=== PATIENT | female | born 1935 | race Hispanic/Latino ===

== ENCOUNTER 2017-07-21 17:50 | Inpatient (IN) | payer MEDICARE, OTHER ==
[2017-07-21] MEDS ORDERED: Metoprolol 1 mg/ml Inj IVP STA ×2 (18:23→19:09)
--- NOTE | 2017-07-21 18:38 | ED PDOC ---
Arrival/HPI - General Time Seen by Provider: 07/21/17 18:09 Historian: Patient - History of Present Illness Narrative History of Present Illness (Text): 07/21/17 18:30 A 82 year old female, whose past medical history includes atrial fibrillation on coumadin, CABG and hypertension, presents to the emergency department complaining chest pain for the past 3 days. Patient notes associated palpitations and shortness of breath. She states her symptoms worsened today causing her to come in for further evaluation. Patient reports her PMD recently started her on Metoprolol Patient denies any fever, chills, nausea, vomiting, abdominal pain, urinary symptoms or any other complaints. PMD: Dr. Valdovinos 07/21/17 20:27 Time/Duration: Other (3 days) Symptom Course: Worsening Quality: Other Context: Home Past Medical History - Provider Review Nursing Documentation Reviewed: Yes - Cardiac Hx Pacemaker: No - Neurological Hx Paralysis: No - HEENT Hx Cataracts: Yes - Hematological/Oncological Hx Blood Transfusions: Yes Hx Blood Transfusion Reaction: No - Musculoskeletal/Rheumatological Hx Musculoskeletal Disorders: Yes - Gastrointestinal Hx Gastrointestinal Disorders: Yes (ABDOMINAL PAIN S/P EGD WITH PERFORATION, ACUTE PANCREATITIS,REPAIR DUODENUM) - Genitourinary/Gynecological Hx Genitourinary Disorders: Yes (KIDNEY DSE,) Hx Reproductive Disorders: No - Psychiatric Hx Emotional Abuse: No Hx Physical Abuse: No Hx Substance Use: No - Surgical History Hx Angioplasty: Yes Hx Cardiac Catheterization: Yes Hx Cholecystectomy: Yes Hx Open Heart Surgery: Yes - Anesthesia Hx Anesthesia Reactions: No Hx Malignant Hyperthermia: No - Suicidal Assessment Feels Threatened In Home Enviroment: No Family/Social History - Physician Review Nursing Documentation Reviewed: Yes Family/Social History: No Known Family HX Smoking Status: Never Smoked Hx Alcohol Use: No Hx Substance Use: No Hx Substance Use Treatment: No Allergies/Home Meds Allergies/Adverse Reactions: Allergies acetaminophen Allergy (Verified 07/21/17 17:56) HEADACHE erythromycin base Allergy (Verified 07/21/17 17:56) RASH Penicillins Allergy (Verified 07/21/17 17:56) SWELLING tetanus toxoid, adsorbed Allergy (Verified 07/21/17 17:56) SWELLING Home Medications: Home Meds Medication Instructions Recorded Confirmed Atorvastatin [Lipitor] 20 mg PO QPM 06/02/12 07/21/17 Escitalopram [Lexapro] 10 mg PO DAILY 06/02/12 07/21/17 Primidone 50 mg PO BID 06/02/12 07/21/17 Warfarin [Coumadin] 3 mg PO DAILY 03/14/15 07/21/17 Cholecalciferol [Vitamin D] 1,000 iu PO DAILY 03/19/15 07/21/17 Omeprazole [Prilosec] 20 mg PO QAM 03/19/15 07/21/17 ALPRAZolam [Xanax] 0.25 mg PO BID 07/21/17 07/21/17 Lisinopril [Zestril] 20 mg PO DAILY 07/21/17 07/21/17 [place]-3/Dha/Epa/Fish Oil [Fish Oil 1,200 mg PO DAILY 07/21/17 07/21/17 EC 1,200 mg Softgel] Potassium Chloride [K-Dur 20 mEq 20 meq PO BID 07/21/17 07/21/17 ER Tab] Review of Systems - Patients Enrolled in Nursing Admin Initiative [X]: A conversation was conducted with the primary medical doctor. - Physician Review All systems were reviewed & negative as marked: Yes - Review of Systems Constitutional: absent: Fevers, Night Sweats Respiratory: SOB Cardiovascular: Chest Pain, Palpitations Gastrointestinal: absent: Abdominal Pain, Nausea, Vomiting Genitourinary Female: absent: Dysuria, Frequency, Hematuria, Urine Output Changes Physical Exam Vital Signs Reviewed: Yes Vital Signs Temp Pulse Resp BP Pulse Ox 07/21/17 19:57 108 H 171/114 H 07/21/17 19:37 96 H 18 96 07/21/17 19:16 116 H 18 141/95 H 95 07/21/17 18:45 120 H 121/101 H 07/21/17 18:35 18 07/21/17 17:50 97.9 F 123 H 20 170/108 H 99 Temperature: Afebrile Blood Pressure: Hypertensive Pulse: Tachycardic Respiratory Rate: Normal Appearance: Positive for: Well-Appearing, Non-Toxic, Comfortable Pain Distress: None Mental Status: Positive for: Alert and Oriented X 3 - Systems Exam Head: Present: Atraumatic, Normocephalic Pupils: Present: PERRL Extroacular Muscles: Present: EOMI Conjunctiva: Present: Normal Mouth: Present: Moist Mucous Membranes Neck: Present: Normal Range of Motion Respiratory/Chest: Present: Decreased Breath Sounds, Rales. No: Respiratory Distress, Accessory Muscle Use Cardiovascular: Present: Normal S1, S2, Irregular Rhythm. No: Murmurs Abdomen: Present: Normal Bowel Sounds. No: Tenderness, Distention, Peritoneal Signs Back: Present: Normal Inspection Upper Extremity: Present: Normal Inspection, NORMAL PULSES. No: Cyanosis, Edema Lower Extremity: Present: Normal Inspection, NORMAL PULSES. No: Edema, CALF TENDERNESS Neurological: Present: GCS=15, CN II-XII Intact, Speech Normal Skin: Present: Warm, Dry, Normal Color. No: Rashes Psychiatric: Present: Alert, Oriented x 3, Normal Insight, Normal Concentration Medical Decision Making ED Course and Treatment: 07/21/17 18:30 Impression: A 82 year old female with chest pain, palpitations and shortness of breath. Plan: -- Chest xray -- Labs -- Aspirin and Metoprolol for afib -- Reassess and disposition Progress Notes: EKG shows atrial fibrillation at 123 BPM with LBBB, with no changes compared to prior on 09/11/12. Interpreted by me. 07/21/17 20:21 HR improving after IV lopressor. Spoke to Dr. Valdovinos who is requesting home lopressor po dose, lasix and full admit - Lab Interpretations Lab Results: 07/21/17 18:50 07/21/17 18:50 Lab Results 07/21/17 18:50: PT 49.2 H, INR 4.38 H*, APTT 41.3 H 07/21/17 18:50: Sodium 140, Potassium 3.9, Chloride 104, Carbon Dioxide 28, Anion Gap 12, BUN 14, Creatinine 1.0, Est GFR ( Amer) > 60, Est GFR (Non- Af Amer) 53, Random Glucose 114 H, Calcium 9.1, Total Bilirubin 0.8, AST 25, ALT 29, Alkaline Phosphatase 110, Total Creatine Kinase 43, Troponin I 0.06, NT- Pro-B Natriuret Pep 8300 H, Total Protein 6.2, Albumin 3.7, Globulin 2.5, Albumin/Globulin Ratio 1.5 07/21/17 18:50: WBC 9.9 D, RBC 4.27, Hgb 11.9 L, Hct 36.4, MCV 85.2, MCH 27.9, MCHC 32.7, RDW 14.8 H, Plt Count 240, MPV 10.0, Gran % 79.8 H, Lymph % (Auto) 13.3 L, Bledsoe % (Auto) 5.8, Eos % (Auto) 0.6 L, Baso % (Auto) 0.5, Gran # 7.88 H , Lymph # 1.3, Bledsoe # 0.6, Eos # 0.1, Baso # 0.05 I have reviewed the lab results: Yes - RAD Interpretation Radiology Orders: 07/21/17 18:22 CHEST PORTABLE [RAD] Stat - Medication Orders Current Medication Orders: Discontinued Medications Aspirin (Aspirin Chewable) 324 mg PO STAT STA Stop: 07/21/17 18:31 Last Admin: 07/21/17 18:44 Dose: 324 mg Furosemide (Lasix) 40 mg IVP STAT STA Stop: 07/21/17 19:54 Metoprolol Tartrate (Lopressor) 5 mg IVP STAT STA Stop: 07/21/17 18:24 Last Admin: 07/21/17 18:45 Dose: 5 mg IVP Administration Document 07/21/17 18:45 [facility] (Rec: 07/21/17 18:45 [id number] Charges for Administration # of IVP Administrations 1 MAR Pulse and Blood Pressure Document 07/21/17 18:45 [facility] (Rec: 07/21/17 18:45 [id number]) Pulse Pulse Rate (60-90) 120 Blood Pressure Blood Pressure (100/60-150/90) 121/101 Metoprolol Tartrate (Lopressor) 5 mg IVP STAT STA Stop: 07/21/17 19:10 Last Admin: 07/21/17 19:57 Dose: 5 mg IVP Administration Document 07/21/17 19:57 SS (Rec: 07/21/17 19:58 SS [id number]) Charges for Administration # of IVP Administrations 1 MAR Pulse and Blood Pressure Document 07/21/17 19:57 SS (Rec: 07/21/17 19:58 SS [id number]) Pulse Pulse Rate (60-90) 108 Blood Pressure Blood Pressure (100/60-150/90) 171/114 Metoprolol Tartrate (Lopressor) 12.5 mg PO STAT STA Stop: 07/21/17 20:21 - Scribe Statement The provider has reviewed the documentation as recorded by the Xavier Fall Provider Scribe Attestation: All medical record entries made by the Scribe were at my direction and personally dictated by me. I have reviewed the chart and agree that the record accurately reflects my personal performance of the history, physical exam, medical decision making, and the department course for this patient. I have also personally directed, reviewed, and agree with the discharge instructions and disposition. Disposition/Present on Arrival - Present on Arrival Any Indicators Present on Arrival: No History of DVT/PE: No History of Uncontrolled Diabetes: No Urinary Catheter: No History Surgical Site Infection Following: None - Disposition Have Diagnosis and Disposition been Completed?: Yes Diagnosis: Atrial fibrillation with RVR Disposition: HOSPITALIZED Disposition Time: 19:57 Patient Plan: Admission Condition: FAIR
[2017-07-21 19:06] LABS: BASO # 0.05 K/mm3 (0.0-2.0); BASO % 0.5 % (0.0-3.0); EOS # 0.1 (0.0-0.7); EOS % 0.6 % (1.5-5.0); GRAN # 7.88 (1.4-6.5); GRAN % 79.8 % (50.0-68.0); HEMATOCRIT 36.4 % (36.0-48.0); LYMPH # 1.3 (1.2-3.4); LYMPH % 13.3 % (22.0-35.0); MEAN CELL VOLUME 85.2 fl (80.0-105.0); MEAN CORPUSCULAR HEMOGLOBIN 27.9 pg (25.0-35.0); MEAN CORPUSCULAR HGB CONC 32.7 g/dl (31.0-37.0); MONO # 0.6 (0.1-0.6); MONO % 5.8 % (1.0-6.0); RED CELL DISTRIBUTION WIDTH 14.8 % (11.5-14.5); WHITE BLOOD COUNT 9.9 10^3/ul (4.5-11.0)
[2017-07-21 19:18] LABS: ALB/GLOB RATIO 1.5 (1.1-1.8); ALKALINE PHOSPHATASE 110 U/L (38-126); ALT/SGPT 29 U/L (7-56); AST/SGOT 25 U/L (14-36); BILIRUBIN,TOTAL 0.8 mg/dL (0.2-1.3); BLOOD UREA NITROGEN 14 mg/dL (7-21); CALCIUM 9.1 mg/dL (8.4-10.5); CARBON DIOXIDE 28 mmol/L (21-33); CHLORIDE 104 mmol/L (98-107); GFR AFRICAN-AMERICAN > 60; GLUCOSE,RANDOM 114 mg/dL (70-110); POTASSIUM 3.9 mmol/L (3.6-5.0); SODIUM 140 mmol/L (132-148); TOTAL PROTEIN 6.2 g/dL (5.8-8.3)
[2017-07-21 19:21] LABS: INR 4.38 (0.93-1.08); PARTIAL THROMBOPLASTIN TIME 41.3 Seconds (25.1-36.5)
[2017-07-21 19:30] LABS: TROPONIN I 0.06 ng/mL
--- NOTE | 2017-07-21 19:40 | CARD ---
APPROVED REPORT EKG Measurement Heart [id number] <Conclusion> Atrial fibrillation with rapid ventricular response Left bundle branch block Abnormal ECG
[2017-07-21 23:25] VITALS: BMI 32.2
[2017-07-22] MEDS ORDERED: diltiaZEM IVPB 100mg in NS 100 ML IV PRN (08:17)
[2017-07-22] MEDS: Albuterol-Ipratrop 3 mg / 0.5 (3 ml) UD IH PRN ×2 (08:26→19:28)
--- NOTE | 2017-07-22 08:47 | RAD ---
HISTORY: chest pain COMPARISON: 09/19/2012 FINDINGS: LUNGS: No active pulmonary disease. PLEURA: No significant pleural effusion identified, no pneumothorax apparent. CARDIOVASCULAR: Mild cardiomegaly. Mild vascular congestion. OSSEOUS STRUCTURES: Sternal wires VISUALIZED UPPER ABDOMEN: Normal. OTHER FINDINGS: None. IMPRESSION: No active disease.
[2017-07-22 09:44] LABS: MEAN CORPUSCULAR HEMOGLOBIN 27.4 pg (25.0-35.0); MEAN CORPUSCULAR HGB CONC 31.9 g/dl (31.0-37.0); MEAN PLATELET VOLUME 9.8 fl (7.0-11.0); WHITE BLOOD COUNT 9.6 10^3/ul (4.5-11.0)
[2017-07-22 09:52] LABS: INR 3.86 (0.93-1.08)
[2017-07-22 10:30] LABS: ALB/GLOB RATIO 1.4 (1.1-1.8); ALKALINE PHOSPHATASE 108 U/L (38-126); ALT/SGPT 29 U/L (7-56); AST/SGOT 24 U/L (14-36); BILIRUBIN,TOTAL 1.3 mg/dL (0.2-1.3); BLOOD UREA NITROGEN 17 mg/dL (7-21); CARBON DIOXIDE 30 mmol/L (21-33); CHLORIDE 100 mmol/L (95-110); GFR AFRICAN-AMERICAN > 60; GLUCOSE,RANDOM 157 mg/dL (70-110); MAGNESIUM 1.5 mg/dL (1.7-2.2); PHOSPHOROUS 2.8 mg/dL (2.5-4.5); POTASSIUM 3.5 mmol/L (3.6-5.0); SODIUM 138 mmol/L (132-148); TOTAL PROTEIN 6.6 g/dL (5.8-8.3)
[2017-07-22 10:52] LABS: TROPONIN I 0.05 ng/mL
--- NOTE | 2017-07-22 11:18 | CON ---
DATE: 07/22/2017 HISTORY OF PRESENT ILLNESS: I was called by the patient who was short of breath and asked to see her. The patient I have known for many years. She presents with shortness of breath. She is found to be in atrial fibrillation with a heart rate in the emergency room of 140. She was given beta blockers as well as digoxin. Currently, the patient is on telemetry floor with dyspnea. PAST MEDICAL HISTORY: The patient's past medical history is notable for hypertension, hypercholesterolemia, and COPD. She is status post coronary artery bypass surgery, last evaluated in 2014. She denies diabetes mellitus. SOCIAL HISTORY: The patient does not smoke. REVIEW OF SYSTEMS: A 14-point review of systems is notable for marked dyspnea, which is over the past several days. No angina noted. PHYSICAL EXAMINATION: VITAL SIGNS: Blood pressure is 153/94, heart rate is 114, atrial fibrillation. NECK: Negative JVD. LUNGS: Minimal expiratory wheezing. Decreased breath sounds. HEART: Reveal S1, S2. EXTREMITIES: Without edema. EKG shows atrial fibrillation with IVCD. LABORATORY DATA: ProBNP is 8300. The troponin is 0.06. The glucose is 114. The hemoglobin is 11.9 with an INR of 4.38. IMPRESSION: 1. New onset atrial fibrillation. 2. Acute systolic congestive heart failure. 3. Bronchospasm. 4. Hypertension. 5. Hypercholesterolemia. 6. Coronary artery disease. 7. History of coronary artery bypass surgery. PLAN: Given these findings, we will start the patient on IV Cardizem. Respiratory treatment with bronchodilators have been ordered. An echocardiogram has been ordered. Akbar Judd MD
--- NOTE | 2017-07-22 16:55 | CARD ---
APPROVED REPORT EXAM: Two-dimensional and M-mode echocardiogram with Doppler and color Doppler. INDICATION Dyspnea 2D DIMENSIONS Left Atrium (2D)5.0 (1.6-4.0cm)IVSd1.6 (0.7-1.1cm) LVDd4.0 (3.9-5.9cm)PWd1.4 (0.7-1.1cm) LVDs3.2 (2.5-4.0cm)FS (%) 19.3 % LVEF (%)40.1 (>50%) M-Mode DIMENSIONS Aortic Root2.50 (2.2-3.7cm)Aortic Cusp Exc.1.20 (1.5-2.0cm) Aortic Valve AoV Peak Doynjrji708.0cm/Nick Peak GR.16mmHg Mitral Valve E/A ratio0.0 TDI E/Lateral E'0.0E/Medial E'0.0 Tricuspid Valve TR Peak [id number] [id number] Peak Gr.30mmHg [id number] LEFT VENTRICLE The left ventricle is normal size. There is moderate concentric left ventricular hypertrophy. Left ventricle systolic function is moderately to severely impaired. sever Septal hypokinesis RIGHT VENTRICLE The right ventricle is normal size. There is normal right ventricular wall thickness. RV Systolic function is moderately reduced. ATRIA The left atrium is moderately dilated. The right atrium size is normal. AORTIC VALVE The aortic valve is moderately sclerotic. There is trace aortic regurgitation. MITRAL VALVE The mitral valve is calcified and displays decreased opening. Mitral regurgitation is mild. TRICUSPID VALVE There is mild tricuspid regurgitation. There is mild pulmonary hypertension. GREAT VESSELS The aortic root is normal in size. The IVC is normal in size and collapses >50% with inspiration. PERICARDIAL EFFUSION There is no pericardial effusion. <Conclusion> The left ventricle is normal size. There is moderate concentric left ventricular hypertrophy. Left ventricle systolic function is moderately to severely impaired. sever Septal hypokinesis RV Systolic function is moderately reduced. The mitral valve is calcified and displays decreased opening. Mitral regurgitation is mild. There is mild tricuspid regurgitation. There is mild pulmonary hypertension.
--- NOTE | 2017-07-23 03:20 | HP ---
DATE: 07/22/2017 HISTORY OF PRESENT ILLNESS: This 82-year-old female is admitted to [facility] with decompensated systolic congestive heart failure in the setting of rapid atrial fibrillation. The patient was treated with IV Lopressor and IV Lasix, Duo nebulizers, nasal O2, and at present is denying chest pain, hemoptysis, nausea, or vomiting. PAST MEDICAL HISTORY: The patient has a significant past medical history of atherosclerotic heart disease, status post CABG, status post coronary artery stents with chronic atrial fibrillation treated with oral Coumadin and outpatient Lopressor. Also with history of chronic depression, anxiety neurosis, hyperlipidemia, degenerative arthritis, spinal arthritis, essential tremor, and obesity. MEDICATIONS: The patient's outpatient medications included Coumadin, primidone, Prilosec, K-Dur, Zestril, Lexapro, vitamin D, Lipitor, and Xanax. ALLERGIES: SHE HAS ALLERGIES TO ACETAMINOPHEN, PENICILLIN, AND ERYTHROMYCIN. FAMILY HISTORY: Noncontributory. SOCIAL HISTORY: She is a current nondrinker, nonsmoker, non IV drug abuser. She is a retired homemaker. REVIEW OF SYSTEMS: CONSTITUTIONAL: No fever or chills. HEAD: No knowledge of stroke. EYES: Macular degeneration. EARS: No hearing loss. THROAT: No swallowing difficulty. NECK: No stiffness. CARDIAC: History of atherosclerotic heart disease, CABG, stents, chronic atrial fibrillation, chronic hypertension. PULMONARY: No hemoptysis. No respiratory insufficiency. GASTROINTESTINAL: GERD. GENITOURINARY: Denied dysuria. SKIN: No rash. No ulcerations. VASCULAR: No claudication. PSYCHOLOGICAL: Chronic anxiety and depression. NEUROLOGICAL: No knowledge of stroke. ENDOCRINOLOGIC: Hyperlipidemia. PHYSICAL EXAMINATION: GENERAL: The patient is in atrial fibrillation on neurocritical care physician. VITAL SIGNS: Temperature 98.9, respirations 19, pulse 90, and blood pressure 145/81. Pulse ox 99%. HEENT: Head: Normocephalic, atraumatic. Eyes: No icterus. Ears: Clear. Throat: Noninjected. NECK: Supple. HEART: Irregular S1 and S2. LUNGS: Decreased breath sounds, both bases. ABDOMEN: Obese. EXTREMITIES: No edema. SKIN: No rash. VASCULAR: Legs are warm to touch. PSYCHOLOGICAL: Extremely anxious. NEUROLOGICAL: Intact. LABORATORY DATA: White count 9600, hemoglobin 11.8, hematocrit 37.0, platelets 219,000. PT/INR is 3.86. Sodium 138, K 3.5, chloride 100, bicarb 30, BUN 17, creatinine 0.9, random blood sugar 157. Phosphorous 2.8. Magnesium 1.5. All liver function testing normal, bilirubin 1.3, AST 24, ALT 29, alk phos 108. Troponin 0.06, second troponin 0.05. IMPRESSION: An 82-year-old female with decompensated congestive heart failure, acute systolic congestive heart failure secondary to rapid atrial fibrillation with comorbidities of atherosclerotic heart disease, status post coronary artery bypass graft, status post stents, history of chronic insomnia, chronic hypertension, obesity, chronic obstructive pulmonary disease, depression, hyperlipidemia, degenerative arthritis, spinal arthritis, essential tremor, anxiety neurosis. PLAN: The patient will be maintained on the cardiac unit. She has been ordered to receive physical therapy for reconditioning. She is ordered to have a heart-healthy diet. She remains on Zestril 20 mg p.o. daily, Xanax 0.25 mg p.o. q. 8 hours p.r.n. anxiety, primidone 50 mg p.o. b.i.d., metoprolol tartrate 25 mg p.o. b.i.d., Lipitor 10 mg p.o. at bedtime, Lexapro 10 mg p.o. daily, Lasix 40 mg IV q. 12, Duo nebulizer therapy q. 6 hours, Coumadin will be on hold, pending resolution of supratherapeutic PT/INR, Ambien 5 mg p.o. at bedtime p.r.n. insomnia. She will have daily INRs. A 2-D echocardiogram has been ordered. Chest x-ray was reviewed and showed CHF. This will need to be repeated to ensure resolution of her admission symptomatology. Ultimate plan is for this patient to be admitted to the transitional care rehabilitation unit for reconditioning and gait training. The patient has repeatedly refused any consideration of outpatient cardiac workup as well as endoscopy, colonoscopy, mammograms, or monitoring at cardiovascular rehab. Overall prognosis though poor; remains stable at present. Greater than fifty minutes was spent in the care, counseling and management as well as ordering of treatment plan for this patient today. All questions were answered. Case was reviewed with patient, nursing, social service, and nurse practitioner. Carina Valdovinos MD [facility] # [id number] [place]
[2017-07-23 06:34] LABS: INR 2.52 (0.93-1.08)
[2017-07-23 06:42] LABS: BLOOD UREA NITROGEN 17 mg/dL (7-21); CALCIUM 9.1 mg/dL (8.4-10.5); CARBON DIOXIDE 33 mmol/L (21-33); CHLORIDE 99 mmol/L (95-110); GFR AFRICAN-AMERICAN > 60; GLUCOSE,RANDOM 104 mg/dL (70-110); POTASSIUM 3.4 mmol/L (3.6-5.0); SODIUM 138 mmol/L (132-148)
[2017-07-23] MEDS ORDERED: Potassium Chloride 20 mEq ER Tab PO SCH (08:00)
[2017-07-23] MEDS ORDERED: Potassium Chloride 20 mEq ER Tab PO ONE (08:21)
[2017-07-23] MEDS: Magnesium Oxide 400 mg Tab UD PO SCH (10:15)
[2017-07-23] MEDS: Potassium Chloride 20 mEq ER Tab PO SCH (17:44)
[2017-07-23] MEDS ORDERED: Digoxin 500 mcg/2ml (0.5 mg/2ml) Inj IVP ONE (19:39)
[2017-07-23 20:31] VITALS: PULSE 118
--- NOTE | 2017-07-23 23:55 | PN ---
DATE: Covering for Dr. Akbar Judd. SUBJECTIVE: The patient is still experiencing shortness of breath and cough. The patient denies any retrosternal chest pain. PHYSICAL EXAMINATION: VITAL SIGNS: Blood pressure 156/98, heart rate 98, temperature 97.6, respirations 17. HEENT: Normocephalic. CHEST: Minimal basal rhonchi. HEART: S1 and S2 regular. ABDOMEN: Soft. EXTREMITIES: Trace leg edema. LABORATORY DATA: Hemoglobin and hematocrit 11.8 and 37.0, white count and platelet count are within normal limit. Today SMA-7 is within normal limit except for potassium of 3.4 and anion gap of 9. Chest x-ray revealed cardiomegaly with possible right lower lobe infiltrate, mild CHF. Sternotomy scar is noted. Echo cardiac study revealed moderate concentric LVH with [id number] impaired left ventricular systolic function with severe septal hypokinesis and moderately reduced right ventricular systolic function. Mild pulmonary hypertension. EKG revealed rapid atrial fibrillation at the rate of 123 on admission. Left bundle-branch block. ASSESSMENT: 1. Biventricular failure. 2. Mild pulmonary hypertension. 3. New onset atrial fibrillation. 4. Coronary artery disease status post coronary artery bypass surgery. 5. Hypertension. 6. Mild hypokalemia. RECOMMENDATIONS: The patient was started on K-Dur at 20 mEq orally twice a day today, continue Lasix 40 mg intravenously twice a day, Lipitor 10 mg once a day, Zestril at 20 mg once a day and albuterol nebulizer. I will give an additional dose of 40 mg of IV Lasix now as well as one dose of digoxin 0.125 mg intravenously now. Vincent Wood MD
[2017-07-24 07:17] LABS: MAGNESIUM 1.9 mg/dL (1.7-2.2); POTASSIUM 3.7 mmol/L (3.6-5.0)
[2017-07-24 07:19] LABS: INR 1.7 (0.93-1.08)
[2017-07-24] MEDS: Magnesium Oxide 400 mg Tab UD PO SCH (09:46)
[2017-07-24] MEDS: Potassium Chloride 20 mEq ER Tab PO SCH ×2 (09:46→17:38)
[2017-07-24] MEDS ORDERED: Potassium Chloride 20 mEq ER Tab PO ONE (11:07)
--- NOTE | 2017-07-24 15:38 | PN ---
DATE: 07/24/2017 COVERING PHYSICIAN: Vincent Wood MD SUBJECTIVE: The patient is having chest pain, but still complaining of mild shortness with walking. OBJECTIVE: Not in apparent distress. Lying flat. PHYSICAL EXAMINATION: As follows: VITAL SIGNS: Temperature afebrile, heart rate 60, blood pressure 140/82. HEENT: PERRLA. Extraocular muscles intact. NECK: Supple. No carotid bruits. No thyromegaly. CHEST: Clear to auscultation. HEART: S1 and S2 regular. ABDOMEN: Soft. EXTREMITIES: Clubbing and cyanosis negative. LABORATORY DATA: Blood workup as follows: WBC 9.6, hemoglobin 11.8, hematocrit 37.0, platelet count 219. Chemistry shows sodium 130, potassium 3.4, chloride 99, carbon dioxide 33, anion gap of 9, BUN 17, creatinine 0.9. IMPRESSION: Decompensated congestive heart failure, acute and chronic secondary to systolic dysfunction. New-onset atrial fibrillation, coronary artery disease, coronary artery bypass grafting, hypertension, hypokalemia of 3.4; repeat 3.7. The patient had an echocardiography done yesterday, read by Dr. Wood that shows left ventricular hypertrophy [id number] impaired, right ventricular systolic pressure moderately reduced, mild mitral regurgitation, mild tricuspid regurgitation, mild pulmonary insufficiency, right ventricular systolic pressure 40, ejection fraction calculated at 40. RECOMMENDATIONS: Supplement potassium aggressively, continue diuretics. Continue Lipitor, Zestril, albuterol. The patient has been continued on Coumadin. INR is 1.7, yesterday it was 2.52. Goal is to keep an average 2. We will follow with you. Telemetry shows AFib. We will follow the lab in the morning. We will transfer care Wednesday to Dr. Akbar Judd. We will add spironolactone 25 b.i.d. Lamonte Patel MD
[2017-07-24 18:51] VITALS: O2SAT 99
[2017-07-24 19:14] VITALS: BP 132/97; PULSE 78; RESP 20; TEMP 98.2
--- NOTE | 2017-07-26 08:05 | PN ---
DATE: 07/23/2017 SUBJECTIVE: This 82-year-old female was examined at her bedside. Her case was reviewed in detail with herself, her nurse, Alessandra Sullivan, nurse practitioner Orin Vanessa and case management. The patient remains hospitalized , receiving parenteral Lasix and undergoing adjustment of cardiac medication including Lopressor and Zestril in the setting of decompensated acute on chronic systolic congestive heart failure in the setting of rapid atrial fibrillation. The patient remains weak and deconditioned. She is denying active chest pain and is less short of breath, is wearing nasal O2 and appears more comfortable than yesterday. awake overnight monitor shows atrial fibrillation. Temperature is 97.9, respirations 20, pulse 84-102 irregular, blood pressure 136/78 with a pulse ox of 92% room air. PHYSICAL EXAMINATION HEENT: Head: Normocephalic, atraumatic. Eyes: No icterus. Ears: Clear. Throat: Noninjected. NECK: Supple. HEART: Irregular, S1, S2. No pathological rubs, murmurs or gallops. LUNGS: Decreased breath sounds at both bases. ABDOMEN: Obese. A well-healed vertical incisional scar is present. EXTREMITIES: No edema. SKIN: Without rash. NEUROLOGICAL: Intact. PSYCHOLOGICAL: Chronic anxiety. VASCULAR: Legs warm to touch. LABORATORY DATA: White count 9600, hemoglobin 11.8, hematocrit 37.0, platelets 219,000. PT/INR 2.52. Sodium 138, K 3.4, chloride 99, bicarb 33, BUN 17, creatinine 0.9, random blood sugar was 104. Magnesium level was low at 1.5. All liver function testing was normal. Bilirubin 1.3, AST 24, ALT 29, alkaline phosphatase 108. TSH normal 1.1. A 2-D echocardiogram was reviewed. It shows left ventricular systolic function moderately to severely impaired with right ventricular systolic function moderately reduced as well. Her left atrium is moderately dilated. She has mild mitral regurgitation, mild tricuspid regurgitation, mild pulmonary hypertension. IMPRESSION: An 82-year-old female admitted with acute on chronic systolic congestive heart failure in the setting of rapid atrial fibrillation that is now being treated with parenteral diuretics, adjustment of beta blockers and continued XIOMARA inhibitors in the setting of biventricular heart failure with comorbidities of obesity, chronic insomnia, chronic hypertension, chronic obstructive pulmonary disease, now with hypokalemia secondary to diuretics, hypomagnesemia secondary to diuretics, chronic depression, chronic hyperlipidemia, essential tremor, spinal arthritis, and degenerative arthritis. PLAN: The plan is continue heart-healthy diet with 1200 mL p.o. fluid restriction daily. She will have her medications adjusted to Zestril 20 mg p.o. daily, Xanax 0.25 mg p.o. q. 8 hours p.r.n. anxiety, Mysoline 50 mg p.o. b.i.d., Mag Oxide 400 mg p.o. daily with a repeat magnesium level ordered for the a.m. Lopressor 50 mg p.o. b.i.d., holding any dose for a blood pressure systolic less than 100 or pulse less than 50, Lipitor 10 mg p.o. at dinnertime, Lexapro 10 mg p.o. daily, Lasix 40 mg IV q. 12, potassium has been increased to 20 mEq p.o. b.i.d. She continues on duo nebulizers q. 6 hours, Ambien 5 mg p.o. at bedtime p.r.n. insomnia. She will have a repeat magnesium, potassium and INR level in the a.m. She is receiving nasal O2, pulmonary toiletry, physical therapy and I have requested that the patient be evaluated for Transitional Care rehab for additional reconditioning and use of IV diuretics and adjustment of cardiac medications while monitoring chest x-ray, labs and clinical progress. All of this was discussed with the patient at her bedside in detail as well as with her nurse, nurse practitioner, case management and social service. Greater than 50 minutes was spent in the care, counseling, management, and adjustment of orders for this patient today. All questions were answered. Carina Valdovinos MD [facility]
--- NOTE | 2017-07-26 08:21 | DS ---
FINAL DIAGNOSES: Acute on chronic decompensated systolic congestive heart failure, rapid atrial fibrillation, improved, chronic hypertension, obesity, chronic obstructive pulmonary disease, chronic depression, hyperlipidemia, essential tremor, anxiety neurosis, spinal arthritis. DISPOSITION: Transitional care rehab. DISCHARGE DIET: A 2-g sodium, low cholesterol. DISCHARGE MEDICATIONS: Aldactone 25 mg p.o. b.i.d., Ambien 5 mg p.o. at bedtime p.r.n. sleep, Coumadin 2 mg p.o. daily monitoring INR and holding any Coumadin dose for an INR level greater than 3, Duo nebulizer q.6, Lasix 40 mg IV q.12, K-Dur 20 mEq b.i.d., Lexapro 10 mg p.o. daily, Lipitor 10 mg p.o. at dinner, Lopressor 50 mg b.i.d., Mysoline 50 mg p.o. b.i.d., Xanax 0.25 mg p.o. q.8 hours p.r.n. anxiety, Zestril 20 mg p.o. daily. SUMMARY: This 82-year-old female was admitted to [facility] with shortness of breath in the setting of clinical and radiographic congestive heart failure secondary to biventricular cardiac heart failure and rapid atrial fibrillation. The patient was treated with IV Lasix, Lopressor, Zestril, Duo nebulizers and Aldactone. Coumadin was initially held because of a supratherapeutic INR level. The patient had a 2-D echocardiogram that revealed biventricular heart failure with severe right and left heart failure noted. At the time of her discharge, her vital signs were temperature 97.9, respirations 18, pulse 69, blood pressure 135/75, and pulse ox was 98% on 2 L nasal O2. The patient was ambulating with assistance, denying chest pain, stating she felt less short of breath with no edema. Labs were white count 9600, hemoglobin 11.8, hematocrit 37.0, platelets 219,000. PT/INR 1.7. Chemistry: Sodium 138, potassium 3.7, chloride 99, bicarb 33, BUN 17, creatinine 0.9, random blood sugar 104. Magnesium normal 1.9. Bilirubin 1.3, AST 24, ALT 29, and alk phos 108. EKG showed atrial fibrillation. Chest x-ray showed no active pulmonary disease but mild vascular congestion. This will be repeated as she is treated with parenteral on oral diuretics as well as beta blockers and XIOMARA inhibitors. All the above was discussed in detail with the patient at her bedside and her nurse. Greater than 40 minutes was spent in the care, counseling, management, review of orders, laboratories, x-rays, and echocardiograms with this patient today. All questions were answered. Prognosis though poor, remains stable at present. Carina Valdovinos MD [facility]
== END 2017-07-24 18:17 | DRG 308 ==
LOC: ED 17:50 → ERH 19:54 → 2RNO 21:21
PROVIDERS: ADMIT Internal Medicine; ATTEND Internal Medicine
DX: I48.2 Chronic atrial fibrillation (principal); I50.23 Acute on chronic systolic (congestive) heart failure; J44.9 Chronic obstructive pulmonary disease, unspecified; I44.7 Left bundle-branch block, unspecified; I08.1 Rheumatic disorders of both mitral and tricuspid valves; I27.20 Pulmonary hypertension, unspecified; I50.82 Biventricular heart failure; G25.0 Essential tremor; F32.9 Major depressive disorder, single episode, unspecified; I11.0 Hypertensive heart disease with heart failure; I25.10 Atherosclerotic heart disease of native coronary artery without angina pectoris; M46.90 Unspecified inflammatory spondylopathy, site unspecified; E78.00 Pure hypercholesterolemia, unspecified; F41.1 Generalized anxiety disorder; E66.9 Obesity, unspecified; J98.01 Acute bronchospasm; E87.6 Hypokalemia; Z95.1 Presence of aortocoronary bypass graft; Z79.01 Long term (current) use of anticoagulants; Z95.5 Presence of coronary angioplasty implant and graft; Z88.0 Allergy status to penicillin; Z68.29 Body mass index [BMI] 29.0-29.9, adult

== ENCOUNTER 2017-07-24 18:21 | Inpatient (IN) | payer OTHER ==
[2017-07-23 20:31] VITALS: PULSE 118
[2017-07-24 18:29] VITALS: BMI 29.7
[2017-07-25 07:20] LABS: INR 1.55 (0.93-1.08)
[2017-07-25] MEDS: Potassium Chloride 20 mEq ER Tab PO SCH ×2 (08:03→17:31)
--- NOTE | 2017-07-25 23:56 | PN ---
DATE: 07/25/2017 SUBJECTIVE: This 82-year-old female remains hospitalized with multiple medical problems including biventricular systolic congestive heart failure and chronic atrial fibrillation. She was admitted with rapid atrial fibrillation that caused decompensation and acute shortness of breath and all of this was in the setting of supratherapeutic PT/INR, which caused the discontinuation of Coumadin which has now been resumed. Also, she is being treated for exacerbation of chronic obstructive pulmonary disease, chronic depression, hyperlipidemia, chronic hypertension, essential tremor, anxiety neurosis, and degenerative arthritis as well as spinal arthritis. At present, the patient remains weak and deconditioned. She denies any active chest pain, shortness of breath, hematemesis or melena. There have been no reports of bruising or bleeding. PHYSICAL EXAMINATION: VITAL SIGNS: At present, show temperature 98.4, respirations 18, pulse 87, and blood pressure 150/99 with a pulse ox of 98% on room air. HEENT: Head: Normocephalic, atraumatic. Eyes: No icterus. Ears: Clear. Throat: Noninjected. NECK: Supple. HEART: Irregular S1, S2. LUNGS: With occasional rhonchi that cleared with coughing. ABDOMEN: Soft. EXTREMITIES: No edema. SKIN: Without rash. No ulcers. NEUROLOGICAL: Intact. PSYCHOLOGICAL: Alert. VASCULAR: Legs warm to touch. LABORATORY DATA: PT/INR 1.55. IMPRESSION: An 82-year-old female with chronic atrial fibrillation, previous supratherapeutic PT/INR, now subtherapeutic PT/INR and comorbidities of stable atherosclerotic heart disease, status post coronary artery bypass graft, status post coronary artery stenting, now with biventricular systolic congestive heart failure, chronic hypertension, chronic insomnia, depression, anxiety neurosis, chronic obstructive pulmonary disease, hyperlipidemia, essential tremor, spinal arthritis and degenerative arthritis. PLAN: As discussed with the patient and her nurse, Yumiko Cota, is to continue physical and occupational therapy for reconditioning and gait training. She will have a repeat basic metabolic panel, hemoglobin/hematocrit, and PT/INR in the a.m. She is ordered to receive Aldactone 25 mg p.o. b.i.d., Ambien 5 mg p.o. at bedtime p.r.n. insomnia. Her Coumadin has been increased to 4 mg p.o. daily, Duo nebulizer inhalational therapy q. 6 hours, potassium 20 mEq p.o. b.i.d., Lasix 20 mg IV b.i.d., Lexapro 10 mg p.o. daily, Lipitor 10 mg p.o. at dinner time, Lopressor 25 mg p.o. b.i.d., Mysoline 50 mg p.o. b.i.d., Xanax 0.25 mg p.o. q. 8 hours p.r.n. anxiety, and Zestril 20 mg p.o. daily. She is ordered to receive 2 liters of nasal O2 p.r.n. She remains on a heart-healthy diet with a 1200 mL p.o. fluid restriction. EKG shows atrial fibrillation with nonspecific ST-T wave changes and her admission chest x-ray showed mild cardiomegaly and mild vascular congestion. Re-review of her echocardiogram confirms biventricular systolic congestive heart failure with her left ventricle function being moderately to severely impaired and the right ventricle systolic function is moderately reduced as well. There is no evidence of aortic stenosis. She does have mild mitral regurgitation, mild pulmonary hypertension, and is tolerating current antihypertensives and diuretics at present. Ultimate plan will be for discharge to home with conservative medical care. All of this was reviewed in detail with the patient, nursing and greater than 50 minutes was spent in the care, counseling, management and review of meds, labs, and orders for this patient today. All questions were answered. She has requested a DNR/DNI status. This has been entered into her records. Carina Valdovinos MD [facility]
[2017-07-26 06:49] LABS: HEMATOCRIT 38.2 % (36.0-48.0)
[2017-07-26 07:08] LABS: INR 1.6 (0.93-1.08)
[2017-07-26 07:14] LABS: CALCIUM 9.7 mg/dL (8.4-10.5); POTASSIUM 4.4 mmol/L (3.6-5.0)
[2017-07-26] MEDS: Potassium Chloride 20 mEq ER Tab PO SCH ×2 (10:14→17:50)
--- NOTE | 2017-07-26 17:59 | PN ---
SUBJECTIVE: This 82-year-old female was examined at her bedside, and case was reviewed in detail with herself and her charge nurse, Sulma Guajardo, registered nurse. The patient is chest pain free. She denies fever or chills. She remains highly anxious and unsure of her multiple medical diagnoses, though they have been repeatedly discussed with her in detail. At present, she is out of bed to chair. She is alert and oriented and states she slept better last evening. PHYSICAL EXAMINATION: VITAL SIGNS: Her temperature is 98, respirations 20, pulse 90, blood pressure 147/94 with a pulse ox of 96% on room air. HEENT: Head; normocephalic, atraumatic. Eyes: No icterus. Ears: Clear. Throat: Noninjected. NECK: Supple. HEART: Irregular S1, S2. LUNGS: With decreased breath sounds at the bases. ABDOMEN: Soft. EXTREMITIES: No edema. SKIN: Without rash. NEUROLOGICAL: Intact. PSYCHOLOGICAL: Anxious. VASCULAR: Legs warm to touch. LABORATORY DATA: Hemoglobin 12.4, hematocrit 38.2. PT/INR 1.6, previously 1.55. Sodium 140, K 4.4, chloride 104, bicarb 29, BUN 31, creatinine 1.1, random blood sugar 106, calcium normal 9.7. IMPRESSION: This is an 82-year-old female admitted with congestive heart failure in the setting of biventricular congestive heart failure as well as rapid atrial fibrillation with obesity, chronic hypertension, chronic obstructive pulmonary disease, depression, anxiety, hyperlipidemia, essential tremor, degenerative arthritis, spinal arthritis. PLAN: As discussed in detail with the patient is to continue her heart-healthy diet, physical and occupational therapy and 1200 mL p.o. fluid restriction daily. She continues on Zestril 20 mg p.o. daily, Xanax 0.25 mg p.o. q.8 hours p.r.n. anxiety; Mysoline 50 mg p.o. b.i.d., Lopressor 25 mg p.o. b.i.d., Lipitor 10 mg p.o. at dinner time, Lexapro 10 mg p.o. daily, Lasix 20 mg IV b.i.d., K-Dur 20 mEq p.o. b.i.d., Duo nebulizers q.6 hours, Coumadin 4 mg p.o. daily while monitoring her INR daily and holding Coumadin for any INR greater than 3; Ambien 5 mg p.o. at bedtime p.r.n. insomnia; Aldactone 25 mg p.o. b.i.d. She will have a repeat PT/INR in the a.m. She remains on fluid restriction. She will have a followup chest x-ray to ensure resolution of congestive heart failure and remains a DNR/DNI. The DNR/DNI was discussed with the patient in detail. She presented her paperwork to confirm this request. Greater than fifty minute was spent in the care, counseling, management, review of orders, medications and treatment plan for this patient with her nursing staff today. All questions were answered. Carina Valdovinos MD [facility]
[2017-07-27 06:32] LABS: INR 1.81 (0.93-1.08)
[2017-07-27] MEDS: Potassium Chloride 20 mEq ER Tab PO SCH ×2 (10:13→17:09)
--- NOTE | 2017-07-27 14:23 | PN ---
DATE: 07/27/2017 SUBJECTIVE: This 82-year-old female was examined at her bedside. She was out of bed to chair, wearing nasal O2. She denied chest pain, but remains mildly short of breath upon ambulating. She denied fever or chills, but remains highly anxious and concerned regarding her multiple diagnoses. PHYSICAL EXAMINATION: VITAL SIGNS: Temperature of 97.8, respirations of 18, pulse of 80, and blood pressure of 129/89 with a pulse oximetry of 97% room air. HEENT: Head is normocephalic and atraumatic. Eyes: No icterus. Ears: Clear. Throat: Noninjected. NECK: Supple. CARDIOVASCULAR: Heart is irregular S1 and S2. LUNGS: Clear. GASTROINTESTINAL: Abdomen is soft. EXTREMITIES: No edema. SKIN: Without rash. NEUROLOGIC: Intact. PSYCHOLOGICAL: Chronically anxious. VASCULAR: Legs warm to touch. LABORATORY DATA: PT/INR 1.81 and previously 1.60. Hemoglobin of 12.4, and hematocrit of 38.2. Sodium of 140, potassium of 4.4, chloride of 104, bicarbonate of 29, BUN of 31, and creatinine of 1.1. Random blood sugar was 106. DIAGNOSTIC DATA: Previous chest x-ray was reviewed, it revealed mild cardiomegaly and mild vascular congestion. A 2-D echocardiogram was reviewed. It shows left ventricular hypertrophy with left ventricle systolic function moderately to severely impaired with the right ventricular wall thickness being noted to be normal, but systolic function of the right ventricle is also moderately reduced. The patient also has mild mitral regurgitation and no evidence of aortic stenosis. IMPRESSION: An 82-year-old female admitted with acute on chronic biventricular systolic congestive heart failure in the setting of rapid atrial fibrillation with history of chronic atrial fibrillation, on oral Coumadin for stroke prophylaxis and comorbidities of obesity, chronic hypertension, anxiety neurosis, chronic insomnia, chronic obstructive pulmonary disease, chronic depression, hyperlipidemia, degenerative arthritis, essential tremor, and spinal arthritis. PLAN: The plan is to continue physical and occupational therapy for reconditioning and gait training. The patient remains on heart-healthy diet with 1200 mL p.o. fluid restriction. She will have nasal O2 p.r.n. She continues on Zestril 20 mg p.o. daily, Xanax 0.25 mg p.o. q. 8 hours. p.r.n. anxiety, primidone (Mysoline) 50 mg p.o. b.i.d., Lopressor 25 mg p.o. b.i.d., Lipitor 10 mg p.o. at dinner time, Lexapro 10 mg p.o. daily, Lasix 20 mg IV q. 12 hours., potassium chloride 20 mEq p.o. b.i.d., Duo nebulizer therapy q. 6 hours. p.r.n. shortness of breath, Coumadin 4 mg daily, we will monitoring her PT/INR daily and holding Coumadin for any dose where her INR level exceeds 3.0. She continues on Ambien 5 mg p.o. at bedtime p.r.n. insomnia and Aldactone 25 mg p.o. b.i.d. She will have a repeat PT/INR in the a.m. Greater than 35 minutes was spent in the care, counseling, management, adjustment of medication orders and review of this patient's case with herself, nursing, social service and physical therapy. All questions were answered. The patient was instructed on p.o. fluid restriction, cardiac diet and the need for daily weights once home. Carina Valdovinos MD [facility]
[2017-07-28 06:53] LABS: INR 2.38 (0.93-1.08)
[2017-07-28] MEDS: Potassium Chloride 20 mEq ER Tab PO SCH ×2 (10:25→17:24)
[2017-07-28] MEDS: Albuterol-Ipratrop 3 mg / 0.5 (3 ml) UD IH PRN (10:33)
--- NOTE | 2017-07-28 11:30 | RAD ---
HISTORY: CHF COMPARISON: 07/21/2017 TECHNIQUE: Chest PA and lateral FINDINGS: LUNGS: No active pulmonary disease. PLEURA: No significant pleural effusion identified. No pneumothorax apparent. CARDIOVASCULAR: Minimal cardiomegaly left ventricular enlargement configuration suggested. Similar-appearing are not calcification. Tortuosity/ ectasia of the descending thoracic aorta. Differences in projection impede optimal comparison here. Midline sternotomy wires coronary artery bypass clips. OSSEOUS STRUCTURES: Midline sternotomy wires, Abel osteopenia and thoracic spondylosis. VISUALIZED UPPER ABDOMEN: Cholecystectomy clips right upper quadrant. OTHER FINDINGS: None. IMPRESSION: No active disease.
--- NOTE | 2017-07-28 13:23 | PN ---
SUBJECTIVE: This 82-year-old female was examined at her bedside, and her case was reviewed in detail with her registered nurse, Teresita Cannon, who was present for the interview. The patient was out of bed to chair. She was requesting nasal O2. This has been ordered since she has been admitted, and she is aware that she can apply it as needed. She remains anxious. She complains of fatigue and was reappraised of all of her medical illnesses including biventricular systolic congestive heart failure, chronic atrial fibrillation and chronic hypertension. The patient denied any fever or chills and is aware she will need a repeat chest x-ray to evaluate resolution of her congestive heart failure present on admission. She denies any feeling of rapid pulse or palpitation. PHYSICAL EXAMINATION: VITAL SIGNS: Temperature is 97.4, respirations 18, pulse 69 and blood pressure 128/75 with a pulse ox of 97% on room air. HEENT: Head is normocephalic, atraumatic. Eyes; no icterus. Ears; clear. Throat: Noninjected. NECK: Supple. HEART: Irregular S1, S2. LUNGS: Decreased breath sounds at the bases. No wheezing. ABDOMEN: Soft. EXTREMITIES: No edema. NEUROLOGICAL: Intact. PSYCHOLOGICAL: Alert and oriented x3. VASCULAR: Legs warm to touch. SKIN: Without rash or ulceration. LABORATORY DATA: Hemoglobin 12.4, hematocrit 38.2. PT/INR 2.38, previously 1.81. Sodium 140, K 4.4, chloride 104, bicarb 29, BUN 31, creatinine 1.1, random blood sugar 106, and calcium level 9.7. IMPRESSION: An 82-year-old female with biventricular systolic congestive heart failure, mild mitral regurgitation and review of 2D echocardiogram confirms aortic sclerosis, but no evidence of aortic stenosis; also evidence of mild pulmonary hypertension. Previous chest x-ray was reviewed and revealed congestive heart failure in the setting of rapid atrial fibrillation. She also has chronic insomnia, chronic anxiety neurosis, chronic atrial fibrillation for which she is on Coumadin which will now be adjusted given her therapeutic PT/INR, chronic obstructive pulmonary disease, hypertension, anxiety neurosis, chronic depression, hyperlipidemia, spinal arthritis, degenerative arthritis, essential tremor, and hyperlipidemia. PLAN: As discussed with the patient and nursing at bedside includes heart-healthy diet, restrictions of 2 g sodium and 1200 mL p.o. fluid restriction daily. This was reviewed with the patient in detail. She continues on nasal O2 two liters p.r.n. She is ordered to receive physical therapy for reconditioning and steady gait training. She will continue on Zestril 20 mg p.o. daily, Xanax 0.25 mg p.o. q.8 hours p.r.n. anxiety, Mysoline 50 mg p.o. b.i.d., Lopressor 25 mg p.o. b.i.d., Lipitor 10 mg p.o. daily, Lexapro 10 mg p.o. daily, Lasix 20 mg IV b.i.d., potassium 20 mEq p.o. b.i.d., Duo nebulizer therapy inhalational q.6 hours p.r.n. shortness of breath. Coumadin has been decreased from 4 mg to 3 mg p.o. daily. We are monitoring her PT/INR daily. The nursing staff was instructed to hold any Coumadin dosing for any INR greater than 3.0. She is ordered to receive Ambien 5 mg p.o. at bedtime p.r.n. insomnia and Aldactone 25 mg p.o. b.i.d. She remains a DNR/DNI as per her request and this was re-reviewed with the patient today. I will order a repeat chest x-ray to ensure resolution of her congestive heart failure and all of the above was reviewed and discussed as outlined for greater than 35 minutes with the patient today. This case was also reviewed with nursing, social service, physical therapy. All questions were answered. Carina Valdovinos MD [facility]
[2017-07-29] MEDS: Albuterol-Ipratrop 3 mg / 0.5 (3 ml) UD IH PRN (07:20)
[2017-07-29 07:21] LABS: INR 2.81 (0.93-1.08)
[2017-07-29] MEDS: Potassium Chloride 20 mEq ER Tab PO SCH ×2 (10:31→17:34)
--- NOTE | 2017-07-29 23:26 | PN ---
DATE: 07/29/2017 SUBJECTIVE: This 82-year-old female was examined at her bedside. She was sitting in a chair, not wearing nasal O2. When I asked her why she was not wearing her oxygen, she said she felt she did not need it though yesterday it was a significant part of our medical visit. I did review her repeat chest x-ray, PA and lateral; this was completed on 07/28/2017. It showed no active pulmonary disease, no significant pleural effusions, no pneumothorax, persistent minimal cardiomegaly, no evidence of any pneumonic infiltrates, and there was no evidence of any active congestive heart failure. PHYSICAL EXAMINATION: VITAL SIGNS: Her temperature is 98.2, respirations 18, pulse 107, blood pressure 120/75, and pulse ox 99% room air. HEAD: Normocephalic, atraumatic. EYES: No icterus. EARS: Clear. THROAT: Non-injected. NECK: Supple. HEART: Irregular, S1 and S2. LUNGS: Decreased breath sounds at bases. ABDOMEN: Soft. EXTREMITIES: No edema. SKIN: Without rash. NEUROLOGIC: Intact. PSYCHOLOGIC: Chronic anxiety. VASCULAR: Legs warm to touch. LABORATORY DATA: Hemoglobin 12.4, hematocrit 38.2. PT/INR 2.82, previously 2.38. Sodium 140, potassium 4.4, chloride 104, bicarb 29, BUN 31, creatinine 1.1, random blood sugar 106, calcium 9.7. IMPRESSION: An 82-year-old female status post biventricular systolic congestive heart failure exacerbation in the setting of previous rapid atrial fibrillation, now improved, with stable atherosclerotic heart disease, status post coronary artery bypass graft, status post stenting with comorbidities of obesity, chronic hypertension, atrial fibrillation on oral Coumadin, with chronic insomnia, chronic depression, chronic obstructive pulmonary disease, degenerative arthritis, spinal arthritis, anxiety neurosis, chronic depression, hyperlipidemia, and essential tremor. PLAN: As discussed with the patient and nurse, Yumiko Cota, Registered Nurse, at bedside will be: Continue heart-healthy, 2 g sodium, low-cholesterol, 1200 mL p.o. fluid restriction diet. This was reviewed in detail with the patient at her bedside. She continues on physical and occupational therapy for reconditioning and she is aware she has an order for 2 liters of nasal O2 p.r.n. She states she does not need it at present. She will continue on Zestril 20 mg p.o. daily, Xanax 0.25 mg p.o. q.8 hours p.r.n. anxiety, Mysoline 50 mg p.o. b.i.d., Lopressor 25 mg p.o. b.i.d., Lipitor 10 mg p.o. at dinner time, Lexapro 10 mg p.o. daily, Lasix 20 mg IV b.i.d., K-Dur 20 mEq p.o. b.i.d., DuoNeb nebulizers q.6 hours p.r.n., Coumadin has been dose reduced to 1 mg tonight, and she will have a repeat PT/INR in the a.m. She is also to receive Ambien 5 mg p.o. at bedtime p.r.n. insomnia and Aldactone 25 mg p.o. b.i.d. The patient will be readied for discharge within the next few days. She was re-advised of all of her medical diagnoses, need for dietary compliance, fluid restriction, and medication and lab followup. Greater than 35 minutes was spent in the care, counseling, management, review of x-rays, laboratories and discussion with Nursing, Social Service, Physical Therapy, and Case Management. All questions were answered. Carina Valdovinos MD [facility]
[2017-07-30 06:45] LABS: INR 2.52 (0.93-1.08)
[2017-07-30] MEDS: Albuterol-Ipratrop 3 mg / 0.5 (3 ml) UD IH PRN (07:08)
[2017-07-30] MEDS: Potassium Chloride 20 mEq ER Tab PO SCH ×2 (09:39→17:16)
[2017-07-31 07:56] LABS: INR 2.16 (0.93-1.08)
[2017-07-31] MEDS: Potassium Chloride 20 mEq ER Tab PO SCH ×2 (09:59→17:37)
[2017-07-31 16:55] VITALS: O2SAT 95
--- NOTE | 2017-07-31 20:43 | PN ---
DATE: 07/31/2017 SUBJECTIVE: This 82-year-old female was examined at her bedside. Her case was reviewed in detail with herself and charge nurse, Sulma Guajardo. The patient remains chest pain free. She remains highly anxious regarding her recent diagnosis of biventricular systolic congestive heart failure. The patient is ambulating without nasal O2 and is being readied for discharge within the next 24 hours. She denies any active chest pain, shortness of breath, hematemesis, or melena and is cooperating with nursing staff and tolerating diet and medication well. PHYSICAL EXAMINATION: VITAL SIGNS: Temperature 98.1, respirations 16, blood pressure 101/63 with a pulse of 90 and a pulse ox of 95% room air. HEENT: Head: Normocephalic, atraumatic. Eyes: No icterus. Ears: Clear. Throat: Noninjected. NECK: Supple. HEART: Irregular, S1, S2. LUNGS: Clear. ABDOMEN: Soft. EXTREMITIES: No edema. SKIN: Without rash. NEUROLOGICAL: Intact. PSYCHOLOGICAL: Alert. VASCULAR: Legs warm to touch. LABORATORY DATA: PT/INR 2.16. Hemoglobin 12.4, hematocrit 38.2. Sodium 140, K 4.4, chloride 104, bicarb 29, BUN 31, creatinine 1.1, random blood sugar 106. Calcium normal, 9.7. Chest x-ray was reviewed; it shows no active CHF; it shows mild cardiomegaly. IMPRESSION: An 82-year-old female, do not resuscitate/do not intubate with biventricular systolic congestive heart failure, chronic insomnia, chronic anxiety neurosis, chronic atrial fibrillation controlled with Coumadin 2.5 mg p.o. daily at present, history of chronic obstructive pulmonary disease, hypertension, anxiety, depression, hyperlipidemia, spinal arthritis, degenerative arthritis, essential tremor, and obesity. PLAN: The plan at present is to continue heart-healthy 2-g-sodium, low cholesterol diet with a 1200 mL p.o. fluid restriction. This was once again reviewed with the patient at her bedside. She is ordered to receive 2 liters nasal O2 which she is not using at present. She had all medications reviewed, including Zestril 20 mg p.o. daily, Mysoline 50 mg p.o. b.i.d., Lopressor 25 mg p.o. b.i.d., Lipitor 10 mg p.o. at dinner time, Lexapro 10 mg p.o. daily, Lasix 20 mg IV b.i.d., K-Dur 20 mEq p.o. b.i.d., Duo nebulizer inhalational therapy q. 6 hours p.r.n. shortness of breath, Coumadin 2.5 mg p.o. daily, Ambien 5 mg p.o. at bedtime p.r.n. insomnia, and Aldactone 25 mg p.o. b.i.d. She is scheduled for a PT/INR in the a.m. All medications were reviewed. All labs were reviewed as well as x-ray reports and echocardiograms. Greater than 35 minutes was spent in the care, discussion, management, and ordering and review of laboratories for this patient today. All questions were answered. She is scheduled for discharge in the a.m., if stable. Carina Valdovinos MD MTDD
[2017-08-01 06:02] LABS: INR 2.23 (0.93-1.08)
[2017-08-01 07:03] VITALS: PULSE 88; RESP 20; TEMP 97.8
[2017-08-01] MEDS: Potassium Chloride 20 mEq ER Tab PO SCH (09:21)
[2017-08-01 09:25] VITALS: BP 97/54
--- NOTE | 2017-08-01 23:33 | DS ---
FINAL DIAGNOSES: Biventricular systolic congestive heart failure, chronic atrial fibrillation, obesity, chronic hypertension, essential tremor, degenerative arthritis, spinal arthritis, hyperlipidemia, anxiety neurosis and chronic depression. DISPOSITION: Home. Follow up in my office in 1 week. DISCHARGE MEDS: Coumadin 2.5 mg p.o. daily, primidone 50 mg p.o. b.i.d., enalapril 20 mg p.o. daily, Aldactone 25 mg p.o. b.i.d., Lopressor 25 mg p.o. b.i.d., Lasix 20 mg p.o. b.i.d., Lexapro 10 mg p.o. daily, Lipitor 10 mg p.o. at dinner time. Her K-Dur will be 20 mEq p.o. b.i.d., monitoring levels as an outpatient. SUMMARY: This 82-year-old female was admitted with biventricular systolic congestive heart failure and rapid atrial fibrillation that was controlled with adjustment of medication. Echocardiogram revealed biventricular systolic congestive heart failure and medications were adjusted. She was continued on chronic Coumadin therapy with therapeutic INR levels. At the time of discharge, laboratory showed hemoglobin 12.4, hematocrit 38.2, INR 2.23. Sodium 140, potassium 4.4, chloride 104, bicarb 29, BUN 31, creatinine 1.1 and random blood sugar 106 with a normal calcium level of 9.7. Temperature was 97.8, respirations 20, pulse 88, blood pressure 120/81. Pulse ox 95% on room air. She was discharged to home. She has declined any visiting nurse association visits or home PT. She remains DNR/DNI which has been reviewed multiple times with this patient and overall prognosis though poor is stable at present. All of the above was reviewed with the patient in detail as well as nursing. Greater than 35 minutes was spent in the care, counseling, management, review of x-rays, labs and medication with this patient and nursing today. All questions were answered. Carina Valdovinos MD MTDGarrett
--- NOTE | 2017-08-02 08:17 | PN ---
DATE: 07/30/2017 SUBJECTIVE: This 82-year-old female was examined at her bedside and ambulated in the hallway with physician noting that the patient was independent in ambulation and staircase safety. She was admitted with biventricular systolic congestive heart failure in the setting of rapid atrial fibrillation, longstanding atherosclerotic heart disease, status post CABG and coronary stenting. At present, she is able to ambulate without nasal O2. She is denying chest pain, hemoptysis, bruising, hematemesis or melena. She denies any fever or chills. PHYSICAL EXAMINATION: VITAL SIGNS: Temperature is 97.3, respirations 18, pulse 77 and blood pressure 124/69 with a pulse ox of 99% room air. HEENT: Head normocephalic, atraumatic. Eyes: No icterus. Ears: Clear. Throat: Noninjected. NECK: Supple. HEART: Irregular S1, S2. LUNGS: Decreased breath sounds both bases. ABDOMEN: Obese, nontender. No palpable organomegaly. EXTREMITIES: No clubbing, no cyanosis, no edema. SKIN: Without rash. NEUROLOGICAL: Unchanged. PSYCHOLOGICAL: Chronic anxiety. VASCULAR: Legs warm to touch. LABORATORY DATA: Hemoglobin 12.4, hematocrit 38.2. PT/INR 2.52. Sodium 140, K 4.4, chloride 104, bicarb 29, BUN 31, creatinine 1.1, random blood sugar 106. Calcium normal 9.7. Chest x-ray reviewed and consistent with cardiomegaly, no active infiltrate, no active congestive heart failure at present. IMPRESSION: An 82-year-old female with biventricular systolic congestive heart failure, chronic atrial fibrillation, on oral Coumadin, chronic atherosclerotic heart disease, status post coronary artery bypass grafting and stents, chronic hypertension, chronic obstructive pulmonary disease, obesity, anxiety, degenerative arthritis, spinal arthritis, chronic insomnia, chronic depression, hyperlipidemia, diet controlled diabetes mellitus, essential tremor with deconditioning. PLAN: At present is to continue physical and occupational therapy for gait training and staircase safety. She remains on heart-healthy diabetic diet with a 1200 ml p.o. fluid restriction and orders for nasal O2 p.r.n. She will continue on Zestril 20 mg p.o. daily, Xanax 0.25 mg p.o. q. 8 hours. p.r.n. anxiety, Mysoline 50 mg p.o. b.i.d., Lopressor 25 mg p.o. b.i.d., Lipitor 10 mg p.o. at dinner time, Lexapro 10 mg p.o. a.m., Lasix 20 mg IV b.i.d., potassium chloride 20 mEq p.o. b.i.d., dual nebulizer q. 6 hours p.r.n. shortness of breath and Coumadin had been increased to 2.5 mg p.o. daily. While monitoring her PT/INR daily and holding Coumadin any day her INR is greater than three. She is ordered to receive Ambien 5 mg p.o. at bedtime p.r.n. insomnia, Aldactone 25 mg p.o. b.i.d. As discussed with the patient, ultimate plan will be for discharge to home. She remains a DNR/DNI, which was rediscussed with the patient in detail. This was also reviewed with nursing, Physical Therapy and case management. The patient is declining any home care services including the visiting nurse or outpatient Physical Therapy. All of her labs, x-rays, diet orders and medication orders were reviewed in detail with this patient. Greater than 35 minutes was spent in the care, counseling, management and outlining of orders and discussion with this patient and her team today. All questions were answered. Carina Valdovinos MD MTDD
== END 2017-08-01 13:07 | disposition home or self-care (01) | DRG 945 ==
LOC: TRCU 18:21
PROVIDERS: ADMIT Internal Medicine; ATTEND Internal Medicine
PROC: F07Z9ZZ Gait Training/Functional Ambulation Treatment (ICD-10-PCS; principal; 2017-07-25)
PROC: F08Z4ZZ Home Management Treatment (ICD-10-PCS; 2017-07-26)
PROC: 3E0F7GC Introduction of Other Therapeutic Substance into Respiratory Tract, Via Natural or Artificial Opening (ICD-10-PCS; 2017-07-28)
DX: R53.1 Weakness (principal); I50.23 Acute on chronic systolic (congestive) heart failure; J44.1 Chronic obstructive pulmonary disease with (acute) exacerbation; I48.2 Chronic atrial fibrillation; I11.0 Hypertensive heart disease with heart failure; I50.82 Biventricular heart failure; E11.9 Type 2 diabetes mellitus without complications; I27.20 Pulmonary hypertension, unspecified; G25.0 Essential tremor; F32.9 Major depressive disorder, single episode, unspecified; E78.5 Hyperlipidemia, unspecified; Z79.01 Long term (current) use of anticoagulants; F41.1 Generalized anxiety disorder; I25.10 Atherosclerotic heart disease of native coronary artery without angina pectoris; F51.04 Psychophysiologic insomnia; Z66 Do not resuscitate; I34.0 Nonrheumatic mitral (valve) insufficiency; E66.9 Obesity, unspecified; M46.90 Unspecified inflammatory spondylopathy, site unspecified; Z95.5 Presence of coronary angioplasty implant and graft; Z95.1 Presence of aortocoronary bypass graft

== ENCOUNTER 2017-08-26 06:32 | Day surgery (SDC) | payer MEDICARE ==
[2017-08-23 14:15] VITALS: BMI 29.8
[2017-08-26] MEDS ORDERED: Lidocaine 2% Inj (20ml) ONE (06:41)
[2017-08-26] MEDS ORDERED: Iodixanol 320 MG/ML 100 ML BOTTLE IV ONE (06:42)
[2017-08-26] MEDS ORDERED: Iohexol 350mgl/ml 50 ML ONE (06:42)
[2017-08-26] MEDS ORDERED: Phenylephrine 10 mg/ml Inj ONE (06:42)
[2017-08-26] MEDS ORDERED: Iodixanol 320 MG/ML 200 ML BOTTLE IV ONE (06:42)
[2017-08-26 07:37] LABS: BASO # 0.07 K/mm3 (0.0-2.0); BASO % 0.9 % (0.0-3.0); EOS # 0.2 (0.0-0.7); EOS % 2.1 % (1.5-5.0); GRAN # 4.59 (1.4-6.5); GRAN % 60.1 % (50.0-68.0); HEMATOCRIT 36.8 % (36.0-48.0); LYMPH # 2.3 (1.2-3.4); LYMPH % 30.7 % (22.0-35.0); MEAN CELL VOLUME 86.6 fl (80.0-105.0); MEAN CORPUSCULAR HEMOGLOBIN 28.7 pg (25.0-35.0); MEAN CORPUSCULAR HGB CONC 33.2 g/dl (31.0-37.0); MEAN PLATELET VOLUME 9.6 fl (7.0-11.0); MONO # 0.5 (0.1-0.6); MONO % 6.2 % (1.0-6.0); RED CELL DISTRIBUTION WIDTH 15.3 % (11.5-14.5); WHITE BLOOD COUNT 7.6 10^3/ul (4.5-11.0)
[2017-08-26 07:46] LABS: CALCIUM 9.5 mg/dL (8.4-10.5); POTASSIUM 4.1 mmol/L (3.6-5.0)
[2017-08-26 07:48] LABS: INR 1.28 (0.93-1.08)
[2017-08-26 07:49] LABS: PARTIAL THROMBOPLASTIN TIME 29.2 Seconds (25.1-36.5)
[2017-08-26] MEDS ORDERED: Midazolam 2 MG/2 ML VIAL ONE ×2 (08:00→08:13)
[2017-08-26] MEDS ORDERED: Iodixanol 320 mg/ml 150 ml Bottle IV ONE (08:32)
[2017-08-26] MEDS ORDERED: Sodium Chloride 0.9% 1,000 ML IV SCH (09:00)
--- NOTE | 2017-08-26 09:35 | CP.PCM.HP ---
History of Present Illness - History of Present Illness History of Present Illness: CC: Post heart cath HPI: Patient is an 82 year old female with a past meidcal history that includes CABG, CAD with stents, CHF, chronic atrial fibrillation, depression anxiety, HLD , arthritis who is status post left heart catheterization for with Dr. Akbar Judd. Patient reports feeling short of breath with moving from room to room back in July. Patient was admitted into the hospital for 10 days for which she received medical evaluation and management for her symptoms. Upon follow up from discharge the patient had a stress test with Dr. Judd for which was abnormal. Patient was then scheduled for heart cath today. Patient denies chest pain, abdominal pain, weakness, numbness, dizziness, nausea, fever, chills leading up to admission. 12 POINT OF ROS BENIGN OTHERWISE MENTIONED IN HPI PMH: Atherosclerotic disease, CABG s/p coronary artery stents, CHF with EF <30% , Chronic Atrial fibrillation on anticoagulation with coumadin and lopressor, chronic depression, anxiety, HLD, degenerative arthritis, spinal arthritis, essential tremor, obesity, peripheral neuropathy, tremor PSH: CABG x2 @55yo, CABGx4 @62yo, cholecystectomy FMH: Non-contributory SocHx: T: denies E: denies ID: denies, Retired homemaker ALL: Acetaminophen, PCN, Erythromycin Meds: - Coumadin 2.5mg Daily - Lopressor 25mg BID - Primidone 50mg BID - Lasix 20mg BID - Aldactone 25mg BID - Prilosec 20mg QAM - K-Dur 20mEq BID - Zestril 20mg Daily - Lexapro 10mg Daily - Vitamin D 1,000 IU Daily - Lipitor 10mg Daily - Aspirin 81mg Daily Cardio: Dr. Akbar Judd Present on Admission - Present on Admission Any Indicators Present on Admission: No Review of Systems - Review of Systems Review of Systems: 12 POINT ROS BENIGN OTHERWISE MENTIONED IN HPI Past Patient History - Past Social History Smoking Status: Never Smoked Alcohol: None Drugs: Denies - CARDIAC Hx Pacemaker: No - PULMONARY Hx Respiratory Disorders: No - NEUROLOGICAL Hx Paralysis: No - HEENT Hx HEENT Problems: Yes Hx Cataracts: Yes - RENAL Hx Chronic Kidney Disease: No - ENDOCRINE/METABOLIC Hx Endocrine Disorders: No - HEMATOLOGICAL/ONCOLOGICAL Hx Blood Transfusions: Yes Hx Blood Transfusion Reaction: No - INTEGUMENTARY Hx Dermatological Problems: No - MUSCULOSKELETAL/RHEUMATOLOGICAL Hx Musculoskeletal Disorders: Yes - GASTROINTESTINAL Hx Gastrointestinal Disorders: No - GENITOURINARY/GYNECOLOGICAL Hx Reproductive Disorders: No - PSYCHIATRIC Hx Emotional Abuse: No Hx Physical Abuse: No Hx Substance Use: No - SURGICAL HISTORY Hx Surgeries: Yes - ANESTHESIA Hx Anesthesia Reactions: No Hx Malignant Hyperthermia: No Meds Home Medications: Home Medication List Medication Instructions Recorded Confirmed Type RX: Digoxin [Lanoxin] 0.125 mg PO 1400 #30 tab 08/27/17 Rx RX: Sacubitril/Valsartan [Entresto 1 each PO BID #60 tablet 08/27/17 Rx 24 mg-26 mg Tablet] Allergies/Adverse Reactions: Allergies Allergy/AdvReac Type Severity Reaction Status Date / Time acetaminophen Allergy HEADACHE Verified 07/25/17 01:25 erythromycin base Allergy RASH Verified 08/23/17 13:44 Penicillins Allergy SWELLING Verified 08/23/17 13:44 tetanus toxoid, adsorbed Allergy SWELLING Verified 08/23/17 13:44 Physical Exam - Constitutional Appears: No Acute Distress - Head Exam Head Exam: ATRAUMATIC, NORMAL INSPECTION, NORMOCEPHALIC - Eye Exam Eye Exam: EOMI, PERRL - ENT Exam ENT Exam: Mucous Membranes Moist - Respiratory Exam Respiratory Exam: Clear to Auscultation Bilateral, NORMAL BREATHING PATTERN. absent: Rales, Rhonchi, Wheezes - Cardiovascular Exam Cardiovascular Exam: +S1, +S2. absent: JVD, Systolic Murmur - GI/Abdominal Exam GI & Abdominal Exam: Normal Bowel Sounds, Soft. absent: Firm, Guarding - Extremities Exam Extremities exam: Positive for: normal capillary refill, pedal pulses present. Negative for: pedal edema Additional comments: femoral cath site without bruising, nontender to palpation, pulse present - Neurological Exam Neurological exam: Alert, Oriented x3 - Psychiatric Exam Psychiatric exam: Normal Affect, Normal Mood - Skin Skin Exam: Dry, Intact Results - Vital Signs Recent Vital Signs: Last Vital Signs Temp 98 F 08/26/17 07:00 Pulse 96 H 08/26/17 07:00 Resp 18 08/26/17 07:00 BP 115/72 08/26/17 07:00 Pulse Ox 97 08/26/17 07:00 - Labs Result Diagrams: 08/27/17 06:00 08/27/17 06:00 Labs: Laboratory Results - last 24 hr 12/08/26/17 08/26/17 06:45 06:45 06:45 WBC 7.6 D RBC 4.25 Hgb 12.2 Hct 36.8 MCV 86.6 MCH 28.7 MCHC 33.2 RDW 15.3 H Plt Count 270 MPV 9.6 Gran % 60.1 Lymph % (Auto) 30.7 Mitchell % (Auto) 6.2 H Eos % (Auto) 2.1 Baso % (Auto) 0.9 Gran # 4.59 Lymph # 2.3 Mitchell # 0.5 Eos # 0.2 Baso # 0.07 PT 14.2 H INR 1.28 H APTT 29.2 Sodium 137 Potassium 4.1 Chloride 99 Carbon Dioxide 27 Anion Gap 16 BUN 25 H Creatinine 1.5 H Est GFR ( Amer) 40 Est GFR (Non-Af Amer) 33 Random Glucose 120 H Calcium 9.5 Blood Type Antibody Screen BBK History Checked 08/26/17 06:45 WBC RBC Hgb Hct MCV MCH MCHC RDW Plt Count MPV Gran % Lymph % (Auto) Mitchell % (Auto) Eos % (Auto) Baso % (Auto) Gran # Lymph # Mitchell # Eos # Baso # PT INR APTT Sodium Potassium Chloride Carbon Dioxide Anion Gap BUN Creatinine Est GFR ( Amer) Est GFR (Non-Af Amer) Random Glucose Calcium Blood Type O POSITIVE Antibody Screen Negative BBK History Checked Patient has bt Assessment & Plan (1) Status post left heart catheterization Status: Acute (2) Atrial fibrillation Status: Chronic (3) HLD (hyperlipidemia) Status: Chronic (4) Osteoarthritis Status: Chronic (5) Hx of CABG Status: Chronic (6) CAD (coronary artery disease) Status: Chronic (7) CHF (congestive heart failure) Status: Chronic - Assessment and Plan (Free Text) Assessment: Patient is an 82 year old female with a past meidcal history that includes CABG , CAD with stents, CHF, chronic atrial fibrillation, depression anxiety, HLD, arthritis who is status post left heart catheterization who has been admitted to telemetry floor for observation Plan: 1. S/P Left Heart Cath - Significant cardiac histor including Afib, CABG s/p bypass, CAD, stents, HLD - Left heart Cath with Dr. Judd - Multiple views taken of coronary arteries, bypass vessels clean - Poor EF noted - Post cath procedure per cardiology - Continue to monitor on telemetry 2. Systolic CHF with EF <30% - [facility] today showing poor EF ~30% - Cardiology following - IV milrinone drip per cardio - Holding lasix and lisinopril at this time 2/2 elevated Cr of 1.5 - Monitor on telemetry 3. Atrial fibrillation - Chronic Afib on anticoagulation with warfarin, rate controlled with Lopressor - Continue Coumadin, plan for 5mg - Continue Lopressor 25 PO BID - INR 1.28 today - Check INR in AM 4. Elevated Cr - Holding XIOMARA-inh and lasix at this time - Holding off on fluids 2/2 poor EF - Milrinone drip - f/u AM labs 5. HLD - Continue Lipitor 6. Osteoarthritis - Continue home meds DVT ppx: SCDs GI ppx: Pepcid Case and plan discussed with attending Dr. Hyatt - Date & Time Date: 08/26/17 Time: 13:39
[2017-08-26] MEDS ORDERED: Primacor 1 mg/ml Inj (10 ml) IVP ONE (11:12)
[2017-08-26] MEDS: Milrinone 20mg/100ml D5W 100 ML IV PRN ×2 (11:29→20:10)
[2017-08-26] MEDS: Potassium Chloride 20 mEq ER Tab PO SCH (17:50)
--- NOTE | 2017-08-26 18:59 | CARD ---
APPROVED REPORT EKG Measurement Heart [id number] <Conclusion> Atrial fibrillation with rapid ventricular response Left bundle branch block Abnormal ECG
--- NOTE | 2017-08-26 19:13 | CARDCATH ---
PROCEDURE DATE: 08/26/2017 HISTORY: The patient is an 82-year-old woman who presents with progressive exertional dyspnea. This is also accompanied by occasional chest pain. PAST MEDICAL HISTORY: Includes a history of coronary artery bypass surgery. In addition, the patient suffers from atrial fibrillation, for which she has been treated with Coumadin as well as Lopressor. The patient underwent a stress test, which showed new defects in the anterior wall. The LV has deteriorated. Because of this, cardiac catheterization was recommended. PROCEDURE: Left heart catheterization with coronary arteriography and left ventriculogram followed by SANDOVAL angiogram as well as saphenous vein graft angiogram. There were no complications. I performed moderate sedation, which included the presence of an independent trained observer that assisted in monitoring the patient's level of consciousness and physiologic status. After administration of Versed and fentanyl, my intra service time was 15 minutes. The right femoral artery was cannulated with 6-Monegasque sheath. The findings on catheterization revealed a left ventricle that was globally dilated with an akinetic apex as well as a diffusely hypokinetic LV. Estimated ejection fraction is 35% to 40%. Her coronary anatomy revealed an occluded RCA, which was a dominant vessel. The left main artery was patent. The LAD revealed a critical lesion in its proximal portion as well as to and fro flow in the apex and distal LAD. The circumflex artery was occluded in its proximal portion. The SANDOVAL to the LAD was found to be patent and provided good flow to the distal LAD. The saphenous vein graft to the obtuse marginal branch was found to be patent and provided good antegrade flow. The saphenous vein graft to the RCA was found to be patent and was diffusely diseased. There was a 50% to 60% stenosis in the proximal portion; however, there was REBECCA-3 flow down to the PDA. The caliber of the stenosis was larger than the caliber of the distal vessel that was being supplied. Manual compression was used to close the femoral artery site. The patient tolerated the procedure well. In summary, the procedure revealed a hypokinetic LV with an EF of approximately 35%. There was triple-vessel CAD. Patent SANDOVAL to the LAD. Patent saphenous vein graft to the obtuse marginal branch. Patent RCA, saphenous vein graft to the distal PDA. There was diffuse disease in the RCA graft with a 50% to 60% stenosis in the proximal portion. Given these findings, the patient's symptoms are unlikely due to a new coronary lesion. Instead, her deterioration of LV function with her atrial fibrillation is most likely the cause of her weakness and her dyspnea. We will admit the patient for the next 24 hours for IV Primacor in the hopes of improving her symptoms. Akbar Judd MD
[2017-08-27 06:32] VITALS: O2SAT 93
[2017-08-27 06:33] LABS: BASO # 0.04 K/mm3 (0.0-2.0); BASO % 0.8 % (0.0-3.0); EOS # 0.2 (0.0-0.7); EOS % 2.9 % (1.5-5.0); GRAN # 3.2 (1.4-6.5); GRAN % 62.7 % (50.0-68.0); HEMATOCRIT 34.2 % (36.0-48.0); LYMPH # 1.3 (1.2-3.4); MEAN CELL VOLUME 87.2 fl (80.0-105.0); MEAN CORPUSCULAR HEMOGLOBIN 27.8 pg (25.0-35.0); MEAN CORPUSCULAR HGB CONC 31.9 g/dl (31.0-37.0); MEAN PLATELET VOLUME 9.8 fl (7.0-11.0); MONO # 0.4 (0.1-0.6); MONO % 7.6 % (1.0-6.0); RED CELL DISTRIBUTION WIDTH 15.7 % (11.5-14.5); WHITE BLOOD COUNT 5.1 10^3/ul (4.5-11.0)
[2017-08-27 06:48] LABS: INR 1.24 (0.93-1.08)
[2017-08-27 06:51] LABS: ALB/GLOB RATIO 1.4 (1.1-1.8); BILIRUBIN,TOTAL 0.6 mg/dL (0.2-1.3); CALCIUM 9.1 mg/dL (8.4-10.5); MAGNESIUM 1.8 mg/dL (1.7-2.2); PHOSPHOROUS 3.3 mg/dL (2.5-4.5); POTASSIUM 4.4 mmol/L (3.6-5.0); TOTAL PROTEIN 5.9 g/dL (5.8-8.3)
[2017-08-27] MEDS: Milrinone 20mg/100ml D5W 100 ML IV PRN (07:39)
[2017-08-27] MEDS ORDERED: Metoprolol 1 mg/ml Inj IVP ONE ×2 (08:32→08:40)
[2017-08-27] MEDS ORDERED: Cholecalciferol 1,000 INTLU TAB PO SCH (10:00)
[2017-08-27] MEDS ORDERED: SACUBITRIL 24mg/VALSARTAN 26mg tab PO SCH (10:30)
[2017-08-27] MEDS: Potassium Chloride 20 mEq ER Tab PO SCH (10:31)
--- NOTE | 2017-08-27 10:42 | IP.NPCORE ---
Heart Failure Core Measure - Heart Failure Ejection Fraction: Less Than 40 % (ef 35 to 40 % per cath report 08/26/17) Left Ventricular Function to be assessed after discharge: Yes XIOMARA Inhibitor Prescribed: Yes Contraindication/Reason for not providing: entresto Beta-Santo Prescribed: Metoprolol Succinate (metoprolol tartrate 25mg bid ) Angiotensin II Receptor Santo Prescribed: Yes AnticoagulationTherapy for Atrial Fibrillation/Atrialflutter: Yes Aldosterone Antagonist Prescribed: Yes Implantable Cardioverter Defibrillator Therapy: No Contraindication/Reason for not providing: ef 35 to 40 % Cardiac Resynchronization Therapy Prescribed: Yes - Follow up Will be discharged to: Home Follow Up Date (must be within 7 days from discharge): 09/03/17 Follow Up Time: 09:00
[2017-08-27 11:40] VITALS: BP 112/66; PULSE 88; RESP 20; TEMP 98
--- NOTE | 2017-08-27 13:58 | CP.PCM.DIS ---
Provider - Provider Date of Admission: 08/26/2017 Attending physician: Akbar Judd MD Primary care physician: Maximus Hyatt MD Consults: Cardiology: Dr. Akbar Judd Time Spent in preparation of Discharge (in minutes): 30 Diagnosis - Discharge Diagnosis (1) Status post left heart catheterization Status: Acute (2) Atrial fibrillation Status: Chronic (3) HLD (hyperlipidemia) Status: Chronic (4) Osteoarthritis Status: Chronic (5) Hx of CABG Status: Chronic (6) CAD (coronary artery disease) Status: Chronic (7) CHF (congestive heart failure) Status: Chronic Hospital Course - Lab Results Lab Results: Most Recent Lab Values WBC 5.1 10^3/ul (4.5-11.0) D 08/27/17 06:00 RBC 3.92 10^6/uL (3.5-6.1) 08/27/17 06:00 Hgb 10.9 g/dL (12.0-16.0) L 08/27/17 06:00 Hct 34.2 % (36.0-48.0) L 08/27/17 06:00 MCV 87.2 fl (80.0-105.0) 08/27/17 06:00 MCH 27.8 pg (25.0-35.0) 08/27/17 06:00 MCHC 31.9 g/dl (31.0-37.0) 08/27/17 06:00 RDW 15.7 % (11.5-14.5) H 08/27/17 06:00 Plt Count 209 10^3/uL (120.0-450.0) 08/27/17 06:00 MPV 9.8 fl (7.0-11.0) 08/27/17 06:00 Gran % 62.7 % (50.0-68.0) 08/27/17 06:00 Lymph % (Auto) 26.0 % (22.0-35.0) 08/27/17 06:00 [place] % (Auto) 7.6 % (1.0-6.0) H 08/27/17 06:00 Eos % (Auto) 2.9 % (1.5-5.0) 08/27/17 06:00 Baso % (Auto) 0.8 % (0.0-3.0) 08/27/17 06:00 Gran # 3.20 (1.4-6.5) 08/27/17 06:00 Lymph # 1.3 (1.2-3.4) 08/27/17 06:00 [place] # 0.4 (0.1-0.6) 08/27/17 06:00 Eos # 0.2 (0.0-0.7) 08/27/17 06:00 Baso # 0.04 K/mm3 (0.0-2.0) 08/27/17 06:00 PT 13.7 SECONDS (9.4-12.5) H 08/27/17 05:00 INR 1.24 (0.93-1.08) H 08/27/17 05:00 APTT 29.2 Seconds (25.1-36.5) 08/26/17 06:45 Sodium 139 mmol/L (132-148) 08/27/17 06:00 Potassium 4.4 mmol/L (3.6-5.0) 08/27/17 06:00 Chloride 105 mmol/L (98-107) 08/27/17 06:00 Carbon Dioxide 25 mmol/L (21-33) 08/27/17 06:00 Anion Gap 12 (10-20) 08/27/17 06:00 BUN 23 mg/dL (7-21) H 08/27/17 06:00 Creatinine 1.3 mg/dl (0.7-1.2) H 08/27/17 06:00 Est GFR ( Amer) 48 08/27/17 06:00 Est GFR (Non-Af Amer) 39 08/27/17 06:00 Random Glucose 113 mg/dL (70-110) H 08/27/17 06:00 Calcium 9.1 mg/dL (8.4-10.5) 08/27/17 06:00 Phosphorus 3.3 mg/dL (2.5-4.5) 08/27/17 06:00 Magnesium 1.8 mg/dL (1.7-2.2) 08/27/17 06:00 Total Bilirubin 0.6 mg/dL (0.2-1.3) 08/27/17 06:00 AST 25 U/L (14-36) 08/27/17 06:00 ALT 28 U/L (7-56) 08/27/17 06:00 Alkaline Phosphatase 92 U/L (38-126) 08/27/17 06:00 Total Protein 5.9 g/dL (5.8-8.3) 08/27/17 06:00 Albumin 3.5 g/dL (3.0-4.8) 08/27/17 06:00 Globulin 2.4 gm/dL 08/27/17 06:00 Albumin/Globulin Ratio 1.4 (1.1-1.8) 08/27/17 06:00 Blood Type O POSITIVE 08/26/17 06:45 Antibody Screen Negative 08/26/17 06:45 BBK History Checked Patient has bt 08/26/17 06:45 - Hospital Course Hospital Course: Patient is an 82 year old female with a past meidcal history that includes CABG , CAD with stents, CHF, chronic atrial fibrillation, depression anxiety, HLD, arthritis who was admitted to the hospital status post left heart catheterization with Dr. Akbar Judd. Left heart catheterization was preformed without intervention and showed poor EF of ~30%. Patient was stabilized and placed on telemetry floor overnight for medical observation. Per cardiology with Dr. Judd patient was placed on milrinone drip. Patient was evaluated by cardiology and deemed appropriate for discharge with planned outpatient follow up and cardiac rehab. Per cardiology patient was started on Entresto and placed on digoxin. Medication reconciliation was preformed with the patient with instruction to hold Lisinopril for the next 24 hours and to restart her coumadin 2.5mg dose the following evening after discharge. Discharge plan including outpatient follow up, INR check, medication reconciliation, cardiac rehab and signs of symptoms to be conscious of were discussed, patient in understanding and agreeable. Diagnosis: s/p Left heart catheterization Atrial Fibrillation CHF CAD Hx of CABG(twice) HLD CAD - Date & Time of H&P Date of H&P: 08/26/17 Time of H&P: 09:34 Discharge Exam - Head Exam Head Exam: ATRAUMATIC, NORMAL INSPECTION, NORMOCEPHALIC - Eye Exam Eye Exam: EOMI, PERRL - ENT Exam ENT Exam: Mucous Membranes Moist - Neck Exam Neck exam: Full Rom - Respiratory Exam Respiratory Exam: Clear to PA & Lateral, NORMAL BREATHING PATTERN, UNREMARKABLE. absent: Rales, Rhonchi, Wheezes - Cardiovascular Exam Cardiovascular Exam: REGULAR RHYTHM, +S1, +S2. absent: Systolic Murmur - GI/Abdominal Exam GI & Abdominal Exam: Normal Bowel Sounds, Soft. absent: Firm, Mass, Tenderness - Extremities Exam Extremities exam: normal capillary refill Additional comments: right femoral cath site without erythema, soft, mildly tender to palp, pulse present, no bruising present - Back Exam Back exam: NORMAL INSPECTION. absent: paraspinal tenderness - Neurological Exam Neurological exam: Alert, Normal Gait, Oriented x3 - Psychiatric Exam Psychiatric exam: Normal Affect, Normal Mood - Skin Skin Exam: Dry, Intact Discharge Plan - Discharge Medications Prescriptions: Digoxin [Lanoxin] 0.125 mg PO 1400 #30 tab Sacubitril/Valsartan [Entresto 24 mg-26 mg Tablet] 1 each PO BID #60 tablet - Follow Up Plan Condition: GOOD Disposition: HOME/ ROUTINE Instructions: Heart Failure (DC), Heart Failure (GEN), Pacemaker (DC), Pacemaker (GEN), Pulmonary Edema (DC), Pulmonary Edema (GEN), Ascites (DC), Ascites (GEN) Additional Instructions: Follow up with your primary care doctor within 2-3 days of discharge Follow up with your traffic sign supervisor Dr. Judd within one week of discharge Please have your INR checked within 2-3 days Continue to take your medications as prescribed to you Return to the emergency department or hospital if your symptoms worsen return Referrals: Maximus Hyatt MD [Family Provider] - Akbar Judd MD [Staff Provider] -
[2017-08-27] MEDS ORDERED: Digoxin 125 mcg (0.125 mg) Tab PO SCH (14:00)
--- NOTE | 2017-08-27 17:11 | PN ---
CARDIOLOGY FOLLOWUP SUBJECTIVE: The patient ambulated on the floor and still gets short of breath. No chest pain noted. PHYSICAL EXAMINATION: VITAL SIGNS: Blood pressure is 126/58, the heart rate is in the 80s. NECK: Negative JVD. LUNGS: Without rales. HEART: With S1 and S2. EXTREMITIES: Without edema. LABORATORY DATA: Hemoglobin is 10.9. Chemistries: BUN and creatinine is 23 and 1.3. IMPRESSION: 1. Ischemic dilated cardiomyopathy. 2. Status post coronary artery bypass surgery. 3. Recurrent dyspnea. 4. Coronary artery disease. PLAN: Given these findings, we will rearrange her medications. We will discontinue the Primacor today. We will add digoxin 0.125 daily. We will resume her Lasix. We will change her medications to Entresto. If the patient tolerates the medication, she can be discharged. Follow up and instructions have been given to the patient. We will enroll her in cardiac rehab as well. Akbar Judd MD
== END 2017-08-27 14:34 | disposition home or self-care (01) ==
LOC: EDBD 06:32 → EDSEX 06:32 → CATH 06:32 → EDBD 07:30 → EDSEX 07:30 → 2RSO 09:15 → CATH 08-27 14:34
PROVIDERS: ATTEND Internal Medicine Cardiovascular Disease
DX: I25.10 Atherosclerotic heart disease of native coronary artery without angina pectoris (principal); I50.9 Heart failure, unspecified; I42.0 Dilated cardiomyopathy; I25.5 Ischemic cardiomyopathy; E78.5 Hyperlipidemia, unspecified; F41.8 Other specified anxiety disorders; G25.0 Essential tremor; G62.9 Polyneuropathy, unspecified; I48.2 Chronic atrial fibrillation; E66.9 Obesity, unspecified; M19.90 Unspecified osteoarthritis, unspecified site; Z79.01 Long term (current) use of anticoagulants; Z95.1 Presence of aortocoronary bypass graft; Z95.5 Presence of coronary angioplasty implant and graft; Z88.0 Allergy status to penicillin
CPT/HCPCS: 36415 ×2; 80048; 80053; 83735; 84100; 85025 ×2; 85610 ×2; 85730; 86850; 86900; 93005; 93459; 99152; 99153; C1769; C2629; J1644; J2250; J2260 ×3; J3010; J7040 ×2

== ENCOUNTER 2017-11-11 15:52 | Observation (INO) | payer MEDICARE, OTHER ==
--- NOTE | 2017-11-11 16:50 | ED PDOC ---
Arrival/HPI - General Chief Complaint: Dizziness/Lightheaded Time Seen by Provider: 11/11/17 16:34 Historian: Patient - History of Present Illness Narrative History of Present Illness (Text): 11/11/17 17:12 82yo female with PMhx of hypertension, Afib referred to ED by Dr. Hyatt for low blood pressure and dizziness. Pt report intermittent dizziness and low BP for a month now. States it's been worse for 3days now. also report weakness. States she has been bed restrained for the past 3days to avoid falling. Denies chest pain, SOB, diaphoresis, focal weakness, tinnitus, fever, cough, nausea, abdominal pain, sick contact. Past Medical History - Provider Review Nursing Documentation Reviewed: Yes - Reproductive Menopause: Yes - Cardiac Hx Hypertension: Yes Hx Pacemaker: No Other/Comment: open heart - Pulmonary Hx Respiratory Disorders: No - Neurological HX Cerebrovascular Accident: Yes Hx Paralysis: No - HEENT Hx HEENT Disorder: Yes Hx Cataracts: Yes - Renal Hx Renal Disorder: No - Endocrine/Metabolic Hx Endocrine Disorders: No - Hematological/Oncological Hx Blood Transfusions: Yes Hx Blood Transfusion Reaction: No - Integumentary Hx Dermatological Disorder: No - Musculoskeletal/Rheumatological Hx Musculoskeletal Disorders: Yes - Gastrointestinal Hx Gastrointestinal Disorders: No - Genitourinary/Gynecological Hx Reproductive Disorders: No - Psychiatric Hx Emotional Abuse: No Hx Physical Abuse: No Hx Substance Use: No - Surgical History Hx Appendectomy: Yes Hx Cardiac Catheterization: Yes Hx Cholecystectomy: Yes Hx Open Heart Surgery: Yes - Anesthesia Hx Anesthesia Reactions: No Hx Malignant Hyperthermia: No - Suicidal Assessment Feels Threatened In Home Enviroment: No Family/Social History - Physician Review Nursing Documentation Reviewed: Yes Family/Social History: Unknown Family HX Smoking Status: Never Smoked Hx Alcohol Use: No Hx Substance Use: No Hx Substance Use Treatment: No Allergies/Home Meds Allergies/Adverse Reactions: Allergies acetaminophen Allergy (Verified 11/11/17 16:13) HEADACHE erythromycin base Allergy (Verified 11/11/17 16:13) RASH Penicillins Allergy (Verified 11/11/17 16:13) SWELLING tetanus toxoid, adsorbed Allergy (Verified 11/11/17 16:13) SWELLING Home Medications: Home Meds Medication Instructions Recorded Confirmed Primidone 50 mg PO BID 06/02/12 11/11/17 Cholecalciferol [Vitamin D 1000 IU] 1,000 iu PO DAILY 03/19/15 11/11/17 Omeprazole [Prilosec] 20 mg PO QAM 03/19/15 11/11/17 Clancy-3/Dha/Epa/Fish Oil [Fish Oil 1,200 mg PO DAILY 07/21/17 11/11/17 EC 1,200 mg Softgel] Aspirin [Aspirin Chewable] 81 mg PO DAILY 08/23/17 11/11/17 Digoxin [Lanoxin] 0.125 mg PO DAILY 11/11/17 Review of Systems - Physician Review All systems were reviewed & negative as marked: Yes - Review of Systems Constitutional: Normal Eyes: Normal ENT: Normal Respiratory: Normal Cardiovascular: Normal Gastrointestinal: Normal Genitourinary Female: Normal Musculoskeletal: Normal Skin: Normal Neurological: Dizziness. absent: Headache, Focal Weakness, Speech Changes Endocrine: Normal Hemo/Lymphatic: Normal Psychiatric: Normal Physical Exam Vital Signs Reviewed: Yes Vital Signs Temp Pulse Resp BP Pulse Ox 11/11/17 22:45 70 18 119/77 100 11/11/17 21:08 66 18 125/68 98 11/11/17 19:39 73 18 138/85 95 11/11/17 18:35 118/66 11/11/17 18:17 65 16 114/50 L 98 11/11/17 17:15 68 16 110/59 L 98 11/11/17 16:35 78 16 116/72 98 11/11/17 16:07 98.7 F 65 18 89/52 L 98 Temperature: Afebrile Blood Pressure: Hypotensive Pulse: Regular Respiratory Rate: Normal Appearance: Positive for: Well-Appearing, Non-Toxic, Comfortable Pain Distress: None Mental Status: Positive for: Alert and Oriented X 3 - Systems Exam Head: Present: Atraumatic, Normocephalic Pupils: Present: PERRL Extroacular Muscles: Present: EOMI Conjunctiva: Present: Normal Mouth: Present: Moist Mucous Membranes Neck: Present: Normal Range of Motion Respiratory/Chest: Present: Clear to Auscultation, Good Air Exchange. No: Respiratory Distress, Accessory Muscle Use Cardiovascular: Present: Regular Rate and Rhythm, Normal S1, S2. No: Murmurs Abdomen: Present: Normal Bowel Sounds. No: Tenderness, Distention, Peritoneal Signs Back: Present: Normal Inspection Upper Extremity: Present: Normal Inspection. No: Cyanosis, Edema Lower Extremity: Present: Normal Inspection. No: Edema Neurological: Present: GCS=15, CN II-XII Intact, Speech Normal, Motor Func Grossly Intact, Normal Sensory Function, Normal Cerebellar Funct, Memory Normal , Other (No focal weakness) Skin: Present: Warm, Dry, Normal Color. No: Rashes Psychiatric: Present: Alert, Oriented x 3, Normal Insight, Normal Concentration Medical Decision Making ED Course and Treatment: 11/11/17 18:24 82yo female referred to ED by Dr. Hyatt for frequent falls, dizziness and hypotension Her BP was stable in ED. She was AAO x3 and neurologically stbale. Lab was ntoed with mild elevated Cr , likely secondary to prerenal azotemia. h/h of 9.0 was noted, decreased from 10.0 last lab. Guaic ordered. PT denied melena, hematemesis, hematochezia. BNP 3020. Lasix ordered. Head CT pending EKG Afib with LBBB @73bpm Case was DW Dr. Ferris and he accepted pt to his service. Drs. rowland and Jesus consult. - Lab Interpretations Lab Results: 11/11/17 17:00 11/11/17 17:00 Lab Results 11/11/17 17:00: Digoxin < 0.4 L 11/11/17 17:00: Sodium 142, Potassium 4.4, Chloride 102, Carbon Dioxide 30, Anion Gap 15, BUN 32 H, Creatinine 1.4 H, Est GFR ( Amer) 44, Est GFR ( Non-Af Amer) 36, Random Glucose 88, Calcium 9.6, Magnesium 2.4 H, Total Bilirubin 0.4, AST 23, ALT 24, Alkaline Phosphatase 88, Lactate Dehydrogenase 435, Total Creatine Kinase 58, Troponin I < 0.01 D, NT-Pro-B Natriuret Pep 3090 H, Total Protein 6.4, Albumin 3.8, Globulin 2.6, Albumin/Globulin Ratio 1.5 11/11/17 17:00: PT 12.8 H, INR 1.12 H, APTT 33.1 11/11/17 17:00: WBC 6.7 D, RBC 3.12 L, Hgb 9.0 L, Hct 28.9 L, MCV 92.6 D, MCH 28.8, MCHC 31.1, RDW 14.8 H, Plt Count 227, MPV 10.2, Gran % 72.6 H, Lymph % ( Auto) 19.4 L, [place] % (Auto) 5.2, Eos % (Auto) 2.1, Baso % (Auto) 0.7, Gran # 4.85, Lymph # (Auto) 1.3, [place] # (Auto) 0.4, Eos # (Auto) 0.1, Baso # (Auto) 0.05 - RAD Interpretation Radiology Orders: 11/11/17 16:36 CHEST PORTABLE [RAD] Stat 11/11/17 18:17 HEAD W/O CONTRAST [CT] Stat - Medication Orders Current Medication Orders: Discontinued Medications Furosemide (Lasix) 40 mg IVP STAT STA Stop: 11/11/17 18:25 Last Admin: 11/11/17 18:35 Dose: 40 mg MAR Blood Pressure Document 11/11/17 18:35 MIMI (Rec: 11/11/17 18:37 MIMI [id number]) Blood Pressure Blood Pressure (100/60-150/90) 118/66 IVP Administration Document 11/11/17 18:35 MIMI (Rec: 11/11/17 18:37 [id number][facility] Charges for Administration # of IVP Administrations 1 Disposition/Present on Arrival - Present on Arrival Any Indicators Present on Arrival: No History of DVT/PE: No History of Uncontrolled Diabetes: No Urinary Catheter: No History of Decub. Ulcer: No History Surgical Site Infection Following: None - Disposition Have Diagnosis and Disposition been Completed?: Yes Diagnosis: Atrial fibrillation, CHF (congestive heart failure), Near syncope, Anemia Disposition: HOSPITALIZED Disposition Time: 18:20 Patient Plan: Admission Patient Problems: Current Active Problems Problem Status Onset Anemia Acute Near syncope Acute Atrial fibrillation Chronic CHF (congestive heart failure) Chronic Condition: FAIR
[2017-11-11 17:47] LABS: ALB/GLOB RATIO 1.5 (1.1-1.8); ALBUMIN 3.8 g/dL (3.0-4.8); ALT/SGPT 24 U/L (7-56); AST/SGOT 23 U/L (14-36); BLOOD UREA NITROGEN 32 mg/dL (7-21); CALCIUM 9.6 mg/dL (8.4-10.5); GFR AFRICAN-AMERICAN 44; GFR NON-AFRICAN AMERICAN 36; MAGNESIUM 2.4 mg/dL (1.7-2.2)
[2017-11-11 17:51] LABS: BASO # 0.05 K/mm3 (0.0-2.0); BASO % 0.7 % (0.0-3.0); EOS # 0.1 (0.0-0.7); EOS % 2.1 % (1.5-5.0); GRAN # 4.85 (1.4-6.5); GRAN % 72.6 % (50.0-68.0); INR 1.12 (0.93-1.08); LYMPH # 1.3 (1.2-3.4); LYMPH % 19.4 % (22.0-35.0); MEAN CELL VOLUME 92.6 fl (80.0-105.0); MEAN CORPUSCULAR HEMOGLOBIN 28.8 pg (25.0-35.0); MEAN CORPUSCULAR HGB CONC 31.1 g/dl (31.0-37.0); MEAN PLATELET VOLUME 10.2 fl (7.0-11.0); MONO # 0.4 (0.1-0.6); MONO % 5.2 % (1.0-6.0); PARTIAL THROMBOPLASTIN TIME 33.1 Seconds (25.1-36.5); PROTHROMBIN TIME 12.8 SECONDS (9.4-12.5); RBC 3.12 10^6/uL (3.5-6.1); RED CELL DISTRIBUTION WIDTH 14.8 % (11.5-14.5); WHITE BLOOD COUNT 6.7 10^3/ul (4.5-11.0)
[2017-11-11 17:58] LABS: B-TYPE NATRIURETIC PEPTIDE 3090 pg/mL (0-450); TROPONIN I < 0.01 ng/mL
--- NOTE | 2017-11-11 20:29 | CT ---
EXAM: CT Head Without Intravenous Contrast CLINICAL HISTORY: 82 years old, female; Signs and symptoms; Dizziness TECHNIQUE: Axial computed tomography images of the head/brain without intravenous contrast. All CT scans at this facility use one or more dose reduction techniques, viz.: automated exposure control; ma/kV adjustment per patient size (including targeted exams where dose is matched to indication; i.e. head); or iterative reconstruction technique. Coronal and sagittal reformatted images were created and reviewed. COMPARISON: No relevant prior studies available. FINDINGS: Limitations: Motion artifact - mild. Brain: Pxto-[id number] atrophy. No definite intracranial hemorrhage. No mass. Multiple scattered foci of decreased attenuation within periventricular/subcortical white matter. Probable chronic lacunar infarcts about basal ganglia/external capsule. No definite edema. Ventricles: No hydrocephalus. Bones/joints: No acute fracture. Soft tissues: Unremarkable. Vasculature: Atherosclerotic disease of intracranial arteries. Sinuses: Scattered minimal mucosal thickening. Mastoid air cells: No mastoid effusion. Orbits: Unremarkable as visualized. IMPRESSION: 1. Nonspecific white matter changes. Acute infarction may be CT occult within first 24 hours. If a focal deficit persists, consider followup CT or MRI for further evaluation. 2. Incidental/non-acute findings are described above.
[2017-11-11 22:07] LABS: PH,URINE 6.5 (4.7-8.0); URINE BILIRUBIN NEGATIVE (NEGATIVE); URINE BLOOD NEGATIVE (NEGATIVE); URINE GLUCOSE (UA) NEGATIVE (NEGATIVE); URINE LEUKOCYTE ESTERASE TRACE Leu/uL (NEGATIVE); URINE NITRATE NEGATIVE (NEGATIVE); URINE PROTEIN NEGATIVE mg/dL (<30 mg/dL); URINE UROBILINOGEN 0.2 E.U./dL (<1 E.U./dL)
[2017-11-11 22:09] LABS: URINE APPEARANCE CLEAR (CLEAR); URINE COLOR COLORLESS (YELLOW)
[2017-11-11 22:16] LABS: URINE RBC NEGATIVE /hpf (0-2); URINE WBC NEGATIVE /hpf (0-6)
[2017-11-12 06:10] VITALS: BMI 306488.7
[2017-11-12 06:24] VITALS: O2SAT 96
--- NOTE | 2017-11-12 08:06 | RAD ---
HISTORY: admission COMPARISON: 07/28/2017. FINDINGS: LUNGS: The lungs are clear. PLEURA: No significant pleural effusion identified, no pneumothorax apparent. CARDIOVASCULAR: The heart is normal in size. Status post CABG. OSSEOUS STRUCTURES: No significant abnormalities. VISUALIZED UPPER ABDOMEN: Normal. OTHER FINDINGS: None. IMPRESSION: No active pulmonary disease.
[2017-11-12 08:10] LABS: HEMOGLOBIN 8.7 g/dL (12.0-16.0); MEAN CELL VOLUME 91.6 fl (80.0-105.0); MEAN CORPUSCULAR HEMOGLOBIN 29.3 pg (25.0-35.0); MEAN PLATELET VOLUME 9.8 fl (7.0-11.0); RBC 2.97 10^6/uL (3.5-6.1); RED CELL DISTRIBUTION WIDTH 14.7 % (11.5-14.5); WHITE BLOOD COUNT 5.6 10^3/ul (4.5-11.0)
[2017-11-12 08:20] LABS: ALB/GLOB RATIO 1.4 (1.1-1.8); ALBUMIN 3.5 g/dL (3.0-4.8); CALCIUM 9.4 mg/dL (8.4-10.5)
--- NOTE | 2017-11-12 09:10 | CARD ---
APPROVED REPORT EKG Measurement Heart [id number] <Conclusion> Atrial fibrillation Left bundle branch block Abnormal ECG
[2017-11-12] MEDS ORDERED: Digoxin 125 mcg (0.125 mg) Tab PO SCH (10:00)
[2017-11-12] MEDS ORDERED: Pantoprazole 40 mg EC Tab PO SCH (10:00)
[2017-11-12 10:06] VITALS: PULSE 66
[2017-11-12 11:43] VITALS: BP 109/60; PULSE 81; RESP 16; TEMP 98.9
--- NOTE | 2017-11-12 19:34 | CON ---
DATE: HISTORY OF PRESENT ILLNESS: An 82-year-old white female with past medical history of AFib, hypertension, and came to hospital because she was feeling dizzy and blood pressure was low and symptoms has been going on for 3 to 4 days, staying in bed, and came to the hospital for further checkup. PAST MEDICAL HISTORY: Hypertension and AFib. ALLERGIES: ACETAMINOPHEN, ERYTHROMYCIN, PENICILLIN, AND TETANUS TOXOID. MEDICATIONS: Primidone, omeprazole, aspirin, digoxin. REVIEW OF SYSTEMS: A 10-point review of systems was negative. CAT scan of the head was negative. No acute infarct or bleed. LABORATORY DATA: WBC 6.7, hemoglobin 9, hematocrit 28.9, platelet 227. Sodium 142, potassium 4.4, chloride 102, CO2 30, glucose 88, BUN 32, creatinine 1.4. PHYSICAL EXAMINATION: HEENT: Normocephalic and atraumatic. NECK: Supple. NEUROLOGIC: Alert, awake, oriented x3. No aphasia. Cranial nerve II through XII were tested. Pupils reactive. EOM intact. Visual field full. No facial asymmetry. Tongue midline. Motor examination: Moves all the extremities equally. Tone normal. Deep tendon reflexes 1+. Both plantars are downgoing. Sensory appears intact. Cerebellar, gait deferred. IMPRESSION: Syncope and dizziness secondary to low blood pressure, and anemia. Continue present management and we will follow up. Kwan García MD
--- NOTE | 2017-11-12 20:07 | CON ---
DATE: 11/12/2017 CARDIOLOGY CONSULTATION HISTORY OF PRESENT ILLNESS: The patient is an 82-year-old woman who presented with several weeks of dizziness. The patient suffers from an ischemic dilated cardiomyopathy, atrial fibrillation, and has a history of coronary artery bypass surgery. She was placed on Entresto as well as a series of other medications. She has been dizzy since she has been on multiple medications. When seen in the office, the patient's blood pressure was 80. On presentation to the hospital, her symptoms improved with withdrawal of some of the medications. She is able to ambulate this morning with a blood pressure of 115 systolic. No chest pain. No shortness of breath. She also suffers from hypercholesterolemia and is free of CHF symptoms. SOCIAL HISTORY: Negative smoker. REVIEW OF SYSTEMS: A 14-point review of systems was reviewed in detail. There was resolution of dizziness. No chest pain. No shortness of breath. No edema in the lower extremities. PHYSICAL EXAMINATION: VITAL SIGNS: The blood pressure is 115/73; the heart rates in the 60s, atrial fibrillation with a period of pauses. NECK: Negative JVD. LUNGS: Without rales. HEART: Reveals S1, S2. EXTREMITIES: Without edema. LABORATORY DATA: Includes an EKG, which shows atrial fibrillation with a heart rate in the 50s and 60s. There is a left bundle-branch block noted. Laboratories include a BUN and creatinine of 32 and 1.4. The hemoglobin is 8.7 with a troponin that is negative. IMPRESSION: 1. Dizziness secondary to multiple medications. 2. Ischemic dilated cardiomyopathy with an ejection fraction of 35%. 3. Chronic atrial fibrillation. 4. History of coronary bypass surgery. 5. Anemia. 6. Resolution of dizziness. PLAN: Given these findings: 1. We will send the patient home on a baby aspirin. 2. Coumadin (the patient requests Coumadin instead of Pradaxa). 3. Digoxin 0.125 daily. 4. Statin therapy. 5. We will discontinue her Entresto, we will discontinue her metoprolol. Followup and instructions have been given to the patient. She will see me in the office next week for the measuring of her blood pressure and to review her medications. Akbar Judd MD
--- NOTE | 2017-11-15 07:29 | HP ---
HISTORY OF PRESENT ILLNESS: She came in last night feeling dizzy, was feeling like the low blood pressure for about a month and it got worse for the past three days and she currently get out of bed, so she was sent to the Emergency Room. PAST MEDICAL HISTORY: Hypertension, atria fibrillation, CVA, cataracts, blood transfusions, osteoarthritis, appendectomy, cardiac catheterization, cholecystectomy, open heart surgery, depression. FAMILY HISTORY: Denies any history. SOCIAL HISTORY: Never smoked. No alcohol. No drugs. ALLERGIES: ALLERGIC TO TYLENOL, ERYTHROMYCIN, PENICILLINS AND TETANUS. MEDICATIONS: She is on primidone, vitamin D, Prilosec, fish oil, Lanoxin. REVIEW OF SYSTEMS: She was dizzy, not now. She is doing better off medicine. No acute vision changes or hearing changes. No sore throat. No shortness of breath or cough. No chest pain or palpitations. No nausea, vomiting, constipation or diarrhea. She occasional back pain, but not now. She was very dizzy. No headache. No focal weakness or speech changes. No anxiety or depression. No tremors or neurological deficits. No numbness. PHYSICAL EXAMINATION: GENERAL: She is hypotensive. Well-appearing, nontoxic at this time. Alert and oriented x3. VITAL SIGNS: She has a 98.7 temp, 65 pulse, 18 respiratory rate, 89/52 blood pressure, 98% O2 sat. HEENT: Head is atraumatic, normocephalic. Extraocular muscles are intact. Pupils equal and reactive to light and accommodation. Throat is moist. NECK: Supple. HEART: Regular rate. Normal S1 and S2. LUNGS: Decreased breath sounds, but clear to auscultation bilaterally. ABDOMEN: Soft, nontender. Positive bowel sounds. No guarding or rebound. No CVA tenderness. She is obese. EXTREMITIES: Have no edema bilaterally. NEUROLOGICAL: GCS is 15. Cranial nerves II through XII grossly intact. SKIN: Warm and dry. LYMPH NODE: No palpable lymphadenopathy appreciated. Thyroid midline. LABORATORY DATA: She had lots of tests done. She had a digoxin level of 0.4, urine screen. She had a 142 sodium, potassium 4.4, BUN 32, creatinine 1.4, she was given Lasix in the Emergency Room, random sugar is 88, calcium is 9.6, magnesium is 2.4, total bili is 0.4. AST is 23, ALT is 24, alk phos is 88. Lactate dehydrogenase is 435. Troponin I is less than 0.01. BNP was 3090. She was given Lasix 40 in the emergency room. Total protein 6.4. 1.12 INR. White count 6.7, hemoglobin 9, hematocrit 28.9 and platelets are 227. She also had a CAT scan of the head, which showed nonspecific white matter changes. ASSESSMENT AND PLAN: We will have a consult with Neurology. We will have a consult with Cardiology. She will have a blood test this morning, physical therapy, she is out of bed to chair. We will see if anymore testing to be done for her. She is I do think improved than when she came in without the blood pressure medication. We will see what Neurology and Cardiology says to see if her dizziness and low blood pressure and Samson Ferris DO MTDD
--- NOTE | 2017-11-15 08:56 | DS ---
SUMMARY: I spoke to Dr. Judd, the environment coordinator, today and he told me he is going to discharge her. He adjusted her medications and should be followed in the outpatient with Dr. Hyatt, her primary care physician, and she did well and she was here for adjustment of her medications. She should have an increase in her Warfarin to 3 mg. I will discuss that with her nurse practitioner. DISCHARGE DIAGNOSES: Here with dizziness, low blood pressure. Samson Ferris DO
== END 2017-11-12 15:03 | disposition home or self-care (01) ==
LOC: ED 15:52 → INTOOBSV 18:21 → ERH 18:21 → 2RNO 23:01
PROVIDERS: ADMIT Family Medicine; ATTEND Family Medicine
DX: R42 Dizziness and giddiness (principal); I95.9 Hypotension, unspecified; R55 Syncope and collapse; D64.9 Anemia, unspecified; E78.00 Pure hypercholesterolemia, unspecified; I25.5 Ischemic cardiomyopathy; I42.0 Dilated cardiomyopathy; I48.2 Chronic atrial fibrillation; I10 Essential (primary) hypertension; Z86.73 Personal history of transient ischemic attack (TIA), and cerebral infarction without residual deficits; Z95.1 Presence of aortocoronary bypass graft; Z90.49 Acquired absence of other specified parts of digestive tract
CPT/HCPCS: 36415; 70450; 71045; 80053; 80162; 81001; 82550; 83615; 83735; 83880; 84484; 85025; 85027; 85610; 85730; 87086; 93005; 96374; 97116; 97161; 99285; G0378; G8978; G8979; G8980; J1940

== ENCOUNTER 2018-12-30 08:53 | Outpatient (CLI) | payer MEDICARE | END 2018-12-30 08:54 | disposition home or self-care (01) | LOC: LAB 08:53 ==